=== PATIENT | female | born 1945 | race Caucasian/White ===

== ENCOUNTER → 2017-03-29 | Outpatient (CLI) | payer MEDICARE, BC ==
--- NOTE | 2017-03-29 14:20 | BD ---
EXAMINATION TYPE: MG DEXA axial skeleton. DATE OF EXAM: 03/29/2017 8:30 AM COMPARISON: 2014 CLINICAL HISTORY: osteoporosis Height: 5' Weight: 122 FRAX RISK QUESTIONS: Alcohol (3 or more units per day): no Family History (Parent hip fracture): no Glucocorticoids (More than 3mos): no (Ex: prednisone, prednisolone, methylprednisolone, dexamethasone, and hydrocortisone). History of Fracture in Adulthood: no Secondary Osteoporosis: 1. Type 1 Diabetes: no 2. Hyperthyroidism: no 3. Menopause before 45: yes 4. Malnutrition: no 5. Chronic liver disease: no Rheumatoid Arthritis: no Current Tobacco Use: no RISK FACTORS HISTORY OF: Family History of Osteoporosis: Active: Diet low in dairy products/other sources of calcium: Postmenopausal woman: MEDICATIONS: Additional Medications: cholesterol, pain, xanax, beta di Additional History: EXAM MEASUREMENTS: Bone mineral densitometry was performed using the [employer]. Bone mineral density as measured about the Lumbar spine is: ----- L1-L4(G/cm2): 1.127 T Score Values are as follows: ----- L2: 1.1 ----- L3: 1.9 ----- L4: -1.6 ----- L1-L4: -0.4 Bone mineral density has: Increased 17.7since study of: 03/26/2015 Bone mineral density about the R hip (g/cm2): 0.627 Bone mineral density about the L hip (g/cm2): 0.638 T Score values are as follows: -----R Neck: -3.0 -----L Neck: -2.9 -----R Total: -2.6 -----L Total: -2.7 Bone mineral density has: Decreased -2.8since study of: 03/26/2015 IMPRESSION: Osteoporosis (T Score less than -2.5) as noted by T Score values at the: [facility] Hips There is increased fracture risk and therapy is usually indicated based on age. Re-Screen 1-2 years. Bone density is diminished 2.8% within the bilateral hips from 03/26/2015. Bone density has improved 1 7.7% within the lumbar spine from 2014 NOTE: T-SCORE=SD OF THE YOUNG ADULT MEAN.
--- NOTE | 2017-04-03 08:11 | MM ---
Reason for exam: screening (asymptomatic). Last mammogram was performed 1 year ago. History: Patient is postmenopausal and history of other cancer. Family history of breast cancer in maternal aunt at age 65. Physical Findings: A clinical breast exam by your physician is recommended on an annual basis and results should be correlated with mammographic findings. MG 3D Screening Mammo W/Cad Bilateral CC and MLO view(s) were taken. Prior study comparison: March 27, 2016, bilateral MG 3d screening mammo w/cad. March 26, 2015, bilateral MG screening mammo w CAD. March 25, 2014, right breast MG work up mamm w CAD RT. March 19, 2014, bilateral MG screening mammo w CAD. The breast tissue is heterogeneously dense. This may lower the sensitivity of mammography. No significant changes when compared with prior studies. ASSESSMENT: Benign, BI-RAD 2 RECOMMENDATION: Routine screening mammogram of both breasts in 1 year.
== END | disposition home or self-care (01) ==
LOC: RADMAMWWP 08:25
PROVIDERS: ATTEND Internal Medicine
DX: Z12.31 Encounter for screening mammogram for malignant neoplasm of breast (principal); M81.0 Age-related osteoporosis without current pathological fracture
CPT/HCPCS: 77080; 77063; G0202

== ENCOUNTER → 2017-05-01 | Outpatient (CLI) | payer MEDICARE, BC ==
--- NOTE | 2017-05-01 15:21 | US ---
EXAMINATION TYPE: US kidneys/renal and bladder DATE OF EXAM: 05/01/2017 COMPARISON: NONE CLINICAL HISTORY: 71-year-old female N18.2 stage II chronic kidney disease. TECHNIQUE: Multiple sonographic images of the kidneys and bladder. FINDINGS: Right Kidney: 9.5 x 3.7 x 3.9 cm with mild hydronephrosis. Left Kidney: 9.2 x 4.7 x 4.1 cm without hydronephrosis. Bladder: There is a 1.7 x 1.6 cm mural based echogenic lesion along the mid posterior bladder. Both u reteral jets are seen. Post Void Residual Volume: 67.3 mL, elevated. IMPRESSION: 1. Possible 1.7 cm inferior and posterior bladder calculus. A urothelial mass is difficult to exclude . Correlate with urinalysis, urine cytology, and direct visualization is indicated. 2. Mild right-sided hydronephrosis. 3. Elevated post void bladder residual suggests urinary retention.
== END | disposition home or self-care (01) ==
LOC: RADUSWWP 14:41
PROVIDERS: ATTEND Internal Medicine
DX: N13.30 Unspecified hydronephrosis (principal); N32.89 Other specified disorders of bladder
CPT/HCPCS: 76770

== ENCOUNTER → 2018-04-05 | Outpatient (CLI) | payer MEDICARE, BC ==
--- NOTE | 2018-04-06 07:45 | US ---
EXAMINATION TYPE: US carotid duplex BILAT DATE OF EXAM: 04/05/2018 COMPARISON: NONE CLINICAL HISTORY: I65.23 occlusion and stenosis of bilateral carotid arteries. EXAM MEASUREMENTS: RIGHT: Peak Systolic Velocity (PSV) cm/sec ----- Right CCA: 63.6 ----- Right ICA: 87.8 ----- Right ECA: 102.1 ICA/CCA ratio: 1.4 RIGHT: End Diastole cm/sec ----- Right CCA: 18.6 ----- Right ICA: 31.8 ----- Right ECA: 16.7 LEFT: Peak Systolic Velocity (PSV) cm/sec ----- Left CCA: 77.9 ----- Left ICA: 129.1 ----- Left ECA: 79.0 ICA/CCA ratio: 1.7 LEFT: End Diastole cm/sec ----- Left CCA: 26.3 ----- Left ICA: 40.2 ----- Left ECA: 12.0 VERTEBRALS (direction of flow): Right Vertebral: Antegrade Left Vertebral: Antegrade Rhythm: Normal Mild plaque bilateral bifurcations. No evidence of significant stenosis. Tortuous left ICA. Hypoechoi c area right neck anterior to ECA = 0.9 x 0.6 x 0.6cm IMPRESSION: Mild plaque bilateral bifurcations. No evidence of significant stenosis. Tortuous left IC A. Hypoechoic area right neck anterior to ECA = 0.9 x 0.6 x 0.6cm Criteria for Assigning % of Stenosis / Diameter reduction (Estimation based on the indirect measurements of the internal carotid artery velocities (ICA PSV). 1. Normal (no stenosis)=ICA PSV < 125 cm/s: ratio < 2.0: ICA EDV<40 cm/s. 2. Less than 50% stenosis=ICA PSV < 125 cm/s: ratio < 2.0: ICA EDV<40 cm/s. 3. 50 to 69% stenosis=ICA PSV of 125 to 230 cm/s: ration 2.0 ? 4.0: ICA EDV 40-100 cm/s. 4. Greater than 70% stenosis to near occlusion= ICA PSV > 230 cm/s: ratio > 4.0: ICA EDV > 100 cm/s. 5. Near occlusion= ICA PSV velocities may be low or undetectable: variable ratio and ICA EDV. 6. Total occlusion=unable to detect flow.
--- NOTE | 2018-04-06 11:26 | ECHOF ---
Referral Reason:I34.0 Nonrheumatic mitral Reguritation MEASUREMENTS -------- HEIGHT: 154.9 cm WEIGHT: 55.3 kg BP: 183/73 RVIDd: 2.5 cm (< 3.3) IVSd: 1.1 cm (0.6 - 1.1) LVIDd: 4.1 cm (3.9 - 5.3) LVPWd: 1.0 cm (0.6 - 1.1) IVSs: 1.4 cm LVIDs: 2.5 cm LVPWs: 1.2 cm LA Diam: 3.4 cm (2.7 - 3.8) LAESV Index (A-L): 29.84 ml/m Ao Diam: 2.6 cm (2.0 - 3.7) AV Cusp: 1.5 cm (1.5 - 2.6) LA Diam: 3.6 cm (2.7 - 3.8) MV EXCURSION: 13.970 mm (> 18.000) MV EF SLOPE: 115 mm/s (70 - 150) EPSS: 0.7 cm MV E [place]: 1.21 m/s MV DecT: 208 ms MV A [place]: 0.89 m/s MV E/A Ratio: 1.36 RAP: 5.00 mmHg RVSP: 39.01 mmHg FINDINGS -------- Sinus rhythm. This was a technically good study. The left ventricular size is normal. Left ventricular wall thickness is normal. Overall left vent ricular systolic function is normal with, an EF between 55 - 60 %. The right ventricle is normal in size and function. LA is midly dilated 29-33ml/m2. RA appears enlarged. Aortic valve is trileaflet and is mildly thickened. There is no evidence of aortic regurgitation. There is no evidence of aortic stenosis. The mitral valve leaflets are mildly thickened. [id number]-[id number] mitral regurgitation is present. Mild tricuspid regurgitation present. There is mild pulmonary hypertension. The right ventricular systolic pressure, as measured by Doppler, is 39.01mmHg. Trace/mild (physiologic) pulmonic regurgitation. The aortic root size is normal. Normal inferior vena cava with normal inspiratory collapse consistent with estimated right atrial pre ssure of 5 mmHg. There is no pericardial effusion. CONCLUSIONS -------- 1. Sinus rhythm. 2. This was a technically good study. 3. The left ventricular size is normal. 4. Left ventricular wall thickness is normal. 5. Overall left ventricular systolic function is normal with, an EF between 55 - 60 %. 6. LA is midly dilated 29-33ml/m2. 7. RA appears enlarged. 8. Aortic valve is trileaflet and is mildly thickened. 9. The mitral valve leaflets are mildly thickened. 10. Beix-dx-fbtetdpp mitral regurgitation is present. 11. Mild tricuspid regurgitation present. 12. There is mild pulmonary hypertension. 13. The right ventricular systolic pressure, as measured by Doppler, is 39.01mmHg. 14. Trace/mild (physiologic) pulmonic regurgitation. 15. The aortic root size is normal. 16. There is no pericardial effusion. PACK OPERATOR: Topher Sears RDCS
== END ==
LOC: RADECHMAIN 15:07
PROVIDERS: ATTEND Internal Medicine
DX: I77.1 Stricture of artery (principal); I65.23 Occlusion and stenosis of bilateral carotid arteries
CPT/HCPCS: 93306; 93880

== ENCOUNTER → 2018-04-11 | Outpatient (CLI) | payer MEDICARE, BC ==
--- NOTE | 2018-04-15 12:39 | MM ---
Reason for exam: screening (asymptomatic). Last mammogram was performed 1 year ago. History: Patient is postmenopausal and history of other cancer. Family history of breast cancer in maternal aunt at age 65. Physical Findings: A clinical breast exam by your physician is recommended on an annual basis and results should be correlated with mammographic findings. MG 3D Screening Mammo W/Cad Bilateral CC and MLO view(s) were taken. Prior study comparison: March 29, 2017, bilateral MG 3d screening mammo w/cad. March 27, 2016, bilateral MG 3d screening mammo w/cad. The breast tissue is heterogeneously dense. This may lower the sensitivity of mammography. No significant changes when compared with prior studies. ASSESSMENT: Benign, BI-RAD 2 RECOMMENDATION: Routine screening mammogram of both breasts in 1 year.
== END | disposition home or self-care (01) ==
LOC: RADMAMWWP 11:16
PROVIDERS: ATTEND Internal Medicine
DX: Z12.31 Encounter for screening mammogram for malignant neoplasm of breast (principal)
CPT/HCPCS: 77063; 77067

== ENCOUNTER → 2018-04-17 | Outpatient (CLI) | payer MEDICARE, BC ==
--- NOTE | 2018-04-18 07:07 | US ---
EXAMINATION TYPE: US thyroid st tissue head/neck DATE OF EXAM: 04/17/2018 COMPARISON: April 05, [address] April 04, 2016. CLINICAL HISTORY: Q18.8 MEDIAL CYST OF NECK. Rt anterior to eca solid non vascular mass 0.9 x 0.6 x 0.8 cm GLAND SIZE: Right Lobe: 3.7 x 1.2 x 1.2 cm Overall Parenchyma: homogenous Left Lobe: 2.6 x0.9 x 0.8 cm Overall Parenchyma: homogeneous Isthmus Thickness: 0.3 cm NODULES RIGHT: # of nodules measured on right: 1 1. 0.3 X 0.2 x 0.3 cm echogenic mixed nodule at the lower pole with well-defined margins; . This n odule is round and shows no intranodular vascularity. Prior size: no prior LEFT: # of nodules measured on left: 0 ISTHMUS: # of nodules measured in the isthmus: 0 Bilateral neck scanned, no evidence of lymphadenopathy. There is overall small size thyroid gland identified with asymmetric diminished size to left thyroid lobe again seen. Small nodule right thyroid is marked by technologist. Previously visualized nonspeci fic subcentimeter nodule right external carotid artery is not clearly identified on current study. IMPRESSION: Small size thyroid without worrisome greater than 1 cm solid or cystic nodule.
== END | disposition home or self-care (01) ==
LOC: RADUSWWP 16:02
PROVIDERS: ATTEND Internal Medicine
DX: E04.1 Nontoxic single thyroid nodule (principal)
CPT/HCPCS: 76536

== ENCOUNTER 2019-03-02 15:17 | Emergency (ER) | payer MEDICARE, BC ==
[2019-03-02 15:21] VITALS: TEMP 98.3
--- NOTE | 2019-03-02 15:44 | ED ---
General Adult HPI - General Chief complaint: Urogenital Stated complaint: Poss UTI Time Seen by Provider: 03/02/19 15:23 Source: patient, RN notes reviewed, old records reviewed Mode of arrival: ambulatory Limitations: no limitations - History of Present Illness Initial comments: 73-year-old female patient past medical history of fibromyalgia, GERD, hypert ension, hyperlipidemia presents ED with 1 day of urinary frequency and dysuria. Patient also reports some mild suprapubic discomfort. Patient denies any other complaints. Patient denies any fevers chills, nausea vomiting diarrhea. Patient denies any chest pain shortness of breath. Systemic: Pt denies fatigue, myalgia, fever/chills, rash. Pt denies weakness, night sweats, weight loss. Neuro: Pt denies headache, visual disturbances, syncope or pre-syncope. HEENT: Pt denies ocular discharge or irritation, otalgia, rhinorrhea, pharyngitis or notable lymphadenopathy. Cardiopulmonary: Pt denies chest pain, SOB, heart palpitations, dyspnea on exertion. Abdominal/GI: Pt denies abdominal pain, n/v/d. : Denies new onset urinary or bowel incontinence. MSK: Pt denies myalgia, loss of strength or function in extremities. Neuro: Pt denies new onset weakness, paresthesias. - Related Data Home Medications Medication Instructions Recorded Confirmed ALPRAZolam [Xanax] 0.25 mg PO BID 03/02/16 03/06/16 Acetaminophen Tab [Tylenol Tab] 1,000 mg PO Q6HR PRN 03/02/16 03/06/16 Atorvastatin [Lipitor] 10 mg PO HS 03/02/16 03/06/16 Calcium Carb-Vit D 500Mg-200Un 1 each PO QAM 03/02/16 03/06/16 [Oscal 500+D] Nadolol [Corgard] 20 mg PO DAILY 03/02/16 03/06/16 Naproxen [Naprosyn] 375 mg PO Q12HR 03/02/16 03/06/16 Orphenadrine [Norflex] 100 mg PO Q12H 03/02/16 03/06/16 Ranitidine HCl 150 mg PO QAM 03/02/16 03/06/16 Hydrochlorothiazide 12.5 mg PO DAILY PRN 03/06/16 03/06/16 Previous Rx's Medication Instructions Recorded Nitrofurantoin Monohyd/M-Cryst 100 mg PO Q12HR #14 cap 03/02/19 [Macrobid] Allergies Allergy/AdvReac Type Severity Reaction Status Date / Time hydrocodone bitartrate Allergy "heart Verified 03/02/19 15:20 [From Vicodin] races" latex Allergy Swelling Verified 03/02/19 15:20 prochlorperazine Allergy Pain Verified 03/02/19 15:20 [From Compazine] prochlorperazine edisylate Allergy Pain Verified 03/02/19 15:20 [From Compazine] prochlorperazine maleate Allergy Pain Verified 03/02/19 15:20 [From Compazine] adhesive tape AdvReac Rash/Hives Verified 03/02/19 15:20 Review of Systems ROS Statement: Those systems with pertinent positive or pertinent negative responses have been documented in the HPI. ROS Other: All systems not noted in ROS Statement are negative. Past Medical History Past Medical History: Fibromyalgia, GERD/Reflux, Hyperlipidemia, Hypertension History of Any Multi-Drug Resistant Organisms: None Reported Past Surgical History: Bladder Surgery, Hysterectomy Additional Past Surgical History / Comment(s): 1998 partial hysterectomy & bladder suspension, kidney stone removed Past Anesthesia/Blood Transfusion Reactions: No Reported Reaction Past Psychological History: Anxiety Smoking Status: Former smoker Past Alcohol Use History: Rare Past Drug Use History: None Reported - Past Family History Mother Family Medical History: Cancer, Hyperlipidemia Additional Family Medical History / Comment(s): CA: lung Father Family Medical History: Congestive Heart Failure (CHF), Diabetes Mellitus General Exam - General Exam Comments Initial Comments: Constitutional: NAD, AOX3, Pt has pleasant affect. HEENT: NC/AT, trachea midline, neck supple, no lymphadenopathy. Posterior phary nx non erythematous, without exudates. External ears appear normal, without discharge. Mucous membranes moist. Eyes PERRLA, EOM intact. There is no scleral icterus. No pallor noted. Cardiopulmonary: RRR, no murmurs, rubs or gallops, no JVD noted. Lungs CTAB in anterior and posterior silverio. No peripheral edema. Abdominal exam: Abdomen soft and non-distended. Suprapubic region mildly tender to palpation. No other areas of abdominal tenderness. Bowel sounds active in LLQ. No hepatosplenomegaly. No ecchymosis Neuro: CN II-XII grossly intact. No nuchal rigidity. MSK: No posterior calf tenderness bilaterally, homans sign negative bilaterally. Posterior tibialis and radial pulse +2 bilaterally. Sensation intact in upper and lower extremities. Full active ROM in upper and lower extremities, 5/5 stregnth. Limitations: no limitations Course Vital Signs 03/02/19 03/02/19 03/02/19 15:18 16:44 17:00 Temperature 98.3 F Pulse Rate 73 Respiratory 18 Rate Blood Pressure 192/89 183/93 191/95 O2 Sat by Pulse 99 Oximetry Medical Decision Making - Medical Decision Making 73-year-old female patient past medical history of fibromyalgia, GERD, hypertension, hyperlipidemia presents ED with 1 day of urinary frequency and dysuria. Patient also reports some mild suprapubic discomfort. Patient denies any other complaints. Patient denies any fevers chills, nausea vomiting diarrhea. Patient denies any chest pain shortness of breath. Physical exam displayed: Abdomen soft and non-distended. Suprapubic region mildly tender to palpation. No other areas of abdominal tenderness. Bowel sounds active in LLQ. No hepatosplenomegaly. No ecchymosis. Laboratory investigations revealed: Non- impressive CBC, CMP. UA displayed urinary tract infection. Patient administered 1 g Rocephin ED. Patient discharged with Macrobid. Patient 5 blo od pressure mildly elevated in ED. Patient administered 1 dose of labetalol. Patient discharged. Patient will monitor blood pressure at home. Patient to follow up with primary care provider in 1-2 days. Patient will return to ER if condition worsens in anyway. Case discussed with Dr. Lane. - Lab Data Result diagrams: 03/02/19 16:10 03/02/19 16:10 Lab Results 03/02/19 03/02/19 03/02/19 Range/Units 15:53 16:10 16:10 WBC 9.8 (3.8-10.6) k/uL RBC 4.58 (3.80-5.40) m/uL Hgb 13.6 (11.4-16.0) gm/dL Hct 41.8 (34.0-46.0) % MCV 91.3 (80.0-100.0) fL MCH 29.8 (25.0-35.0) pg MCHC 32.6 (31.0-37.0) g/dL RDW 12.3 (11.5-15.5) % Plt Count 194 (150-450) k/uL Neutrophils % 75 % Lymphocytes % 15 % Monocytes % 7 % Eosinophils % 0 % Basophils % 0 % Neutrophils # 7.4 (1.3-7.7) k/uL Lymphocytes # 1.5 (1.0-4.8) k/uL Monocytes # 0.7 (0-1.0) k/uL Eosinophils # 0.0 (0-0.7) k/uL Basophils # 0.0 (0-0.2) k/uL Sodium 138 (137-145) mmol/L Potassium 4.4 (3.5-5.1) mmol/L Chloride 103 (98-107) mmol/L Carbon Dioxide 25 (22-30) mmol/L Anion Gap 10 mmol/L BUN 22 H (7-17) mg/dL Creatinine 0.89 (0.52-1.04) mg/dL Est GFR (CKD-EPI)AfAm 75 (>60 ml/min/1.73 sqM) Est GFR (CKD-EPI)NonAf 65 (>60 ml/min/1.73 sqM) Glucose 102 H (74-99) mg/dL Calcium 10.0 (8.4-10.2) mg/dL Magnesium 2.0 (1.6-2.3) mg/dL Total Bilirubin 0.8 (0.2-1.3) mg/dL AST 41 H (14-36) U/L ALT 40 (9-52) U/L Alkaline Phosphatase 121 (38-126) U/L Total Protein 8.1 (6.3-8.2) g/dL Albumin 5.1 H (3.5-5.0) g/dL Urine Color Light Yellow Urine Appearance Cloudy H (Clear) Urine pH 6.5 (5.0-8.0) Ur Specific [place] 1.012 (1.001-1.035) Urine Protein Trace H (Negative) Urine Glucose (UA) Negative (Negative) Urine Ketones Negative (Negative) Urine Blood Moderate H (Negative) Urine Nitrite Positive H (Negative) Urine Bilirubin Negative (Negative) Urine Urobilinogen <2.0 (<2.0) mg/dL Ur Leukocyte Esterase Large H (Negative) Urine RBC 30 H (0-5) /hpf Urine WBC 161 H (0-5) /hpf Urine Mucus Rare H (None) /hpf Disposition Clinical Impression: Urinary tract infection Disposition: HOME SELF-CARE Condition: Stable Instructions (If sedation given, give patient instructions): Urinary Tract Infection in Women (ED) Additional Instructions: Patient to adhere to previously discussed treatment plan and will take medication(s) as directed. Patient to follow up with PCP in 1-2 days. Patient to return to ED if symptoms do not improve. Take medication as directed. Follow up with primary care provider in 1-2 days. Prescriptions: Nitrofurantoin Monohyd/M-Cryst [Macrobid] 100 mg PO Q12HR #14 cap Is patient prescribed a controlled substance at d/c from ED?: No Referrals: Yovana Davidson MD [Primary Care Provider] - 1-2 days
[2019-03-02 16:06] LABS: Appearance,Urine Cloudy (Clear); Bilirubin,Urine Negative (Negative); Blood,Urine Moderate (Negative); Color,Urine Light Yellow; Glucose,Urine (UA) Negative (Negative); Ketones,Urine Negative (Negative); Leukocyte Esterase,Urine Large (Negative); Mucus,Urine Rare /hpf; Nitrite,Urine Positive (Negative); PH, Urine 6.5 (5.0-8.0); Protein,Urine Trace (Negative); RBC,Urine 30 /hpf (0-5); Specific Gravity,Urine 1.012 (1.001-1.035); Urobilinogen,Urine <2.0 mg/dL (<2.0)
[2019-03-02 16:19] LABS: Basophils % (A) 0 %; Eosinophils % (A) 0 %; HCT 41.8 % (34.0-46.0); HGB 13.6 gm/dL (11.4-16.0); Lymphocytes # (A) 1.5 k/uL (1.0-4.8); Lymphocytes % (A) 15 %; MCH 29.8 pg (25.0-35.0); MCHC 32.6 g/dL (31.0-37.0); MCV 91.3 fL (80.0-100.0); Mean Platelet Volume 8.9; Monocytes # (A) 0.7 k/uL (0-1.0); Monocytes % (A) 7 %; Neutrophils # (A) 7.4 k/uL (1.3-7.7); Neutrophils % (A) 75 %; Platelet Count 194 k/uL (150-450); RBC 4.58 m/uL (3.80-5.40); RDW 12.3 % (11.5-15.5); WBC 9.8 k/uL (3.8-10.6)
--- NOTE | 2019-03-02 16:43 | XR ---
EXAMINATION TYPE: XR KUB DATE OF EXAM: 03/02/2019 COMPARISON: NONE HISTORY: Renal stones TECHNIQUE: 2 views FINDINGS: There is a mild thoracolumbar dextroscoliosis. There is no sign of intestinal obstruction o r pneumoperitoneum. Fecal pattern is normal. There are no pathologic calcifications over the kidneys. Lung bases are clear. There is no evidence of a mass. IMPRESSION: Nonacute abdomen.
[2019-03-02 16:45] LABS: Albumin 5.1 g/dL (3.5-5.0); Total Bilirubin 0.8 mg/dL (0.2-1.3); Total Protein 8.1 g/dL (6.3-8.2)
[2019-03-02 17:03] LABS: Potassium 4.4 mmol/L (3.5-5.1)
[2019-03-02] MEDS ORDERED: LABETALOL SYRINGE 5 MG/ML IVP STA (17:18)
[2019-03-02 18:04] VITALS: BP 173/89; PULSE 89; RESP 16
== END 2019-03-02 18:15 | disposition home or self-care (01) ==
LOC: EC 15:17
DX: N39.0 Urinary tract infection, site not specified (principal); I10 Essential (primary) hypertension; K21.9 Gastro-esophageal reflux disease without esophagitis; M79.7 Fibromyalgia; E78.5 Hyperlipidemia, unspecified; F41.9 Anxiety disorder, unspecified; Z87.891 Personal history of nicotine dependence; Z88.5 Allergy status to narcotic agent; Z88.8 Allergy status to other drugs, medicaments and biological substances; Z91.040 Latex allergy status; Z91.048 Other nonmedicinal substance allergy status; Z79.1 Long term (current) use of non-steroidal anti-inflammatories (NSAID); Z79.899 Other long term (current) drug therapy; Z98.890 Other specified postprocedural states
CPT/HCPCS: 36415; 80053; 83735; 85025; 81001; 87086; 74018; 99284; 96365; 96375; J0696; 87077; 87186

== ENCOUNTER 2019-03-29 10:42 | Emergency (ER) | payer MEDICARE, BC ==
[2019-03-29 10:51] VITALS: RESP 16; TEMP 97.9
--- NOTE | 2019-03-29 11:02 | ED ---
Extremity Problem HPI - General Chief complaint: Extremity Problem,Nontraumatic Stated complaint: POST OP SWELLING RT ARM Time Seen by Provider: 03/29/19 11:01 Source: patient Mode of arrival: ambulatory Limitations: no limitations - History of Present Illness Initial comments: Dayaanra is a pleasant 73-year-old female presents to the emergency department t sissy for evaluation of right hand swelling. Patient reports that on afternoon she had a lesion removed from her right forearm by Dr. Rivera dermatology. Patient tolerated that procedure well had a dressing placed and was advised to remove the dressing in 48 hours which would be around 2 PM today. Patient reports that yesterday she noted that her hands seemed to be swelling despite her attempts to keep elevated, she began applying ice to the hand but when she woke this morning noted that it was significantly more swollen so she came to the ER for evaluation. She has not attempted to remove the dressing as of yet. MD Complaint: extremity pain - Related Data Home Medications Medication Instructions Recorded Confirmed ALPRAZolam [Xanax] 0.25 mg PO BID 03/02/16 03/06/16 Acetaminophen Tab [Tylenol Tab] 1,000 mg PO Q6HR PRN 03/02/16 03/06/16 Atorvastatin [Lipitor] 10 mg PO HS 03/02/16 03/06/16 Calcium Carb-Vit D 500Mg-200Un 1 each PO QAM 03/02/16 03/06/16 [Oscal 500+D] Nadolol [Corgard] 20 mg PO DAILY 03/02/16 03/06/16 Naproxen [Naprosyn] 375 mg PO Q12HR 03/02/16 03/06/16 Orphenadrine [Norflex] 100 mg PO Q12H 03/02/16 03/06/16 Ranitidine HCl 150 mg PO QAM 03/02/16 03/06/16 Hydrochlorothiazide 12.5 mg PO DAILY PRN 03/06/16 03/06/16 Previous Rx's Medication Instructions Recorded Nitrofurantoin Monohyd/M-Cryst 100 mg PO Q12HR #14 cap 03/02/19 [Macrobid] Allergies Allergy/AdvReac Type Severity Reaction Status Date / Time hydrocodone bitartrate Allergy "heart Verified 03/29/19 10:51 [From Vicodin] races" latex Allergy Swelling Verified 03/29/19 10:51 prochlorperazine Allergy Pain Verified 03/29/19 10:51 [From Compazine] prochlorperazine edisylate Allergy Pain Verified 03/29/19 10:51 [From Compazine] prochlorperazine maleate Allergy Pain Verified 03/29/19 10:51 [From Compazine] adhesive tape AdvReac Rash/Hives Verified 03/29/19 10:51 Review of Systems ROS Statement: Those systems with pertinent positive or pertinent negative responses have been documented in the HPI. ROS Other: All systems not noted in ROS Statement are negative. Past Medical History Past Medical History: Fibromyalgia, GERD/Reflux, Hyperlipidemia, Hypertension History of Any Multi-Drug Resistant Organisms: None Reported Past Surgical History: Bladder Surgery, Hysterectomy Additional Past Surgical History / Comment(s): 1998 partial hysterectomy & bladder suspension, kidney stone removed Past Anesthesia/Blood Transfusion Reactions: No Reported Reaction Past Psychological History: Anxiety Smoking Status: Former smoker Past Alcohol Use History: Rare Past Drug Use History: None Reported - Past Family History Mother Family Medical History: Cancer, Hyperlipidemia Additional Family Medical History / Comment(s): CA: lung Father Family Medical History: Congestive Heart Failure (CHF), Diabetes Mellitus General Exam - General Exam Comments Initial Comments: Physical Exam GENERAL: Patient is well-developed and well-nourished. Patient is nontoxic and well-hydrated and is in no distress. HENT: Normocephalic, Atraumatic. EYES: PERRL, EOMI PULMONARY: Unlabored respirations CARDIOVASCULAR: RRR ABDOMEN: Non-distended SKIN: Well healing surgical incision on right forearm, with no erythema or purulence foy on the right forearm from dressing causing compression : Deferred NEUROLOGIC: Patient is alert and oriented x3. Moving all extremities spontaneously MUSCULOSKELETAL: Normal extremities with adequate strength and full range of motion. No lower extremity swelling or edema. No calf tenderness. PSYCHIATRIC: Normal psychiatric evaluation Limitations: no limitations Course Vital Signs 03/29/19 10:48 Temperature 97.9 F Pulse Rate 55 L Respiratory 16 Rate Blood Pressure 177/62 O2 Sat by Pulse 100 Oximetry Medical Decision Making - Medical Decision Making The patient was seen and evaluated history is obtained from the patient Physical exam does reveal an edematous right hand with a dressing in place in the right forearm, dressing is very tight there is concerned that it's causing some vascular congestion Dressing was removed, wound was evaluated and is healing very well with no signs of infection or inflammation A very loose dressing was placed, with a the 30 minutes of the patient was here in the emergency department edema in the hand began improving, I do feel that all of her edema is due to vascular constriction due to the very tight dressing. Appropriate dressing was discussed with patient and her , patient was encouraged to continue elevating the hand, ice as needed if she once it though this is not an inflammatory process therefore ice is not necessary it is uncomfortable for her. All questions pertaining care were answered return parameters discussed patient discharged home in stable condition Disposition Clinical Impression: Encounter for postoperative wound check Disposition: HOME SELF-CARE Condition: Stable Instructions (If sedation given, give patient instructions): Care For Your Stitches (DC) Is patient prescribed a controlled substance at d/c from ED?: No Referrals: Yovana Davidson MD [Primary Care Provider] - 1-2 days
[2019-03-29 11:50] VITALS: BP 162/72; PULSE 56
== END 2019-03-29 11:45 | disposition home or self-care (01) ==
LOC: EC 10:42
DX: Z48.01 Encounter for change or removal of surgical wound dressing (principal); E78.5 Hyperlipidemia, unspecified; I10 Essential (primary) hypertension; K21.9 Gastro-esophageal reflux disease without esophagitis; F41.9 Anxiety disorder, unspecified; Z87.891 Personal history of nicotine dependence; Z88.5 Allergy status to narcotic agent; Z88.8 Allergy status to other drugs, medicaments and biological substances; Z91.040 Latex allergy status; Z91.048 Other nonmedicinal substance allergy status; Z79.1 Long term (current) use of non-steroidal anti-inflammatories (NSAID); Z79.899 Other long term (current) drug therapy
CPT/HCPCS: 99283

== ENCOUNTER → 2019-04-22 | Outpatient (CLI) | payer MEDICARE, BC ==
--- NOTE | 2019-04-22 11:56 | MM ---
Reason for exam: screening (asymptomatic). Last mammogram was performed 1 year ago. History: Patient is postmenopausal and history of other cancer. Family history of breast cancer in maternal aunt at age 65. Physical Findings: A clinical breast exam by your physician is recommended on an annual basis and results should be correlated with mammographic findings. MG 3D Screening Mammo W/Cad Bilateral CC and MLO view(s) were taken. Prior study comparison: April 11, 2018, bilateral MG 3d screening mammo w/cad. March 29, 2017, bilateral MG 3d screening mammo w/cad. The breast tissue is heterogeneously dense. This may lower the sensitivity of mammography. There are benign appearing round calcifications bilaterally. There is no discrete abnormality. ASSESSMENT: Benign, BI-RAD 2 RECOMMENDATION: Routine screening mammogram of both breasts in 1 year.
== END | disposition home or self-care (01) ==
LOC: RADMAMWWP 09:24
PROVIDERS: ATTEND Internal Medicine
DX: Z12.31 Encounter for screening mammogram for malignant neoplasm of breast (principal)
CPT/HCPCS: 77063; 77067

== ENCOUNTER 2019-06-02 08:48 | Observation (INO) | payer MEDICARE, BC ==
[2019-06-02] MEDS ORDERED: ASPIRIN 81 MG PO STA (09:09)
--- NOTE | 2019-06-02 09:43 | ED ---
Chest Pain HPI - General Chief Complaint: Chest Pain Stated Complaint: chest pain Time Seen by Provider: 06/02/19 09:09 Source: patient, RN notes reviewed Mode of arrival: ambulatory Limitations: no limitations - History of Present Illness Initial Comments: This a 73-year-old female presents emergency Department with chief complaint of chest pain. Patient states it started about 6:45 AM. Patient states that the pain is in her central chest region. It is worse with deep inspiration. Patient does admit that she has had a cough for over a week which is been persistent. Patient does have a history of hyperlipidemia, hypertension, former smoker. Patient denies any known lung disease. Patient denies fever or chills no abdominal pain no diaphoresis no nausea vomiting. - Related Data Home Medications Medication Instructions Recorded Confirmed ALPRAZolam [Xanax] 0.25 mg PO BID 03/02/16 06/02/19 Acetaminophen Tab [Tylenol Tab] 1,000 mg PO Q6HR PRN 03/02/16 06/02/19 Atorvastatin [Lipitor] 10 mg PO HS 03/02/16 06/02/19 Calcium Carb-Vit D 500Mg-200Un 1 tab PO QAM 03/02/16 06/02/19 [Oscal 500+D] Nadolol [Corgard] 20 mg PO DAILY 03/02/16 06/02/19 Orphenadrine [Norflex] 100 mg PO Q12H 03/02/16 06/02/19 Ranitidine HCl 150 mg PO BID 03/02/16 06/02/19 Hydrochlorothiazide 12.5 mg PO DAILY PRN 03/06/16 06/02/19 Allergies Allergy/AdvReac Type Severity Reaction Status Date / Time hydrocodone bitartrate Allergy "heart Verified 06/02/19 09:22 [From Vicodin] races" latex Allergy Swelling Verified 06/02/19 09:22 prochlorperazine Allergy Pain Verified 06/02/19 09:22 [From Compazine] prochlorperazine edisylate Allergy Pain Verified 06/02/19 09:22 [From Compazine] prochlorperazine maleate Allergy Pain Verified 06/02/19 09:22 [From Compazine] adhesive tape AdvReac Rash/Hives Verified 06/02/19 09:22 Review of Systems ROS Statement: Those systems with pertinent positive or pertinent negative responses have been documented in the HPI. ROS Other: All systems not noted in ROS Statement are negative. EKG Findings - EKG Comments: EKG Findings:: EKG performed at 9:38 sinus bradycardia rate of 50 LA 152 QRS 86 QT/QTc 448/408 Past Medical History Past Medical History: Fibromyalgia, GERD/Reflux, Hyperlipidemia, Hypertension History of Any Multi-Drug Resistant Organisms: None Reported Past Surgical History: Bladder Surgery, Hysterectomy Additional Past Surgical History / Comment(s): 1998 partial hysterectomy & bladder suspension, kidney stone removed Past Anesthesia/Blood Transfusion Reactions: No Reported Reaction Past Psychological History: Anxiety Smoking Status: Former smoker Past Alcohol Use History: Rare Past Drug Use History: None Reported - Past Family History Mother Family Medical History: Cancer, Hyperlipidemia Additional Family Medical History / Comment(s): CA: lung Father Family Medical History: Congestive Heart Failure (CHF), Diabetes Mellitus General Exam Limitations: no limitations General appearance: alert, in no apparent distress Head exam: Present: atraumatic, normocephalic, normal inspection Eye exam: Present: normal appearance, PERRL, EOMI. Absent: scleral icterus, conjunctival injection, periorbital swelling ENT exam: Present: normal exam, normal oropharynx, mucous membranes moist, TM's normal bilaterally Neck exam: Present: normal inspection, full ROM. Absent: tenderness, meningismus, lymphadenopathy Respiratory exam: Present: normal lung sounds bilaterally, chest wall tenderness (Anterior chest wall, parasternal). Absent: respiratory distress, wheezes, rales, rhonchi, stridor Cardiovascular Exam: Present: normal rhythm, bradycardia, normal heart sounds. Absent: systolic murmur, diastolic murmur, rubs, gallop, clicks GI/Abdominal exam: Present: soft, normal bowel sounds. Absent: distended, tenderness, guarding, rebound, rigid Course Vital Signs 06/02/19 08:58 Temperature 98.1 F Pulse Rate 54 L Respiratory 18 Rate Blood Pressure 146/75 O2 Sat by Pulse 100 Oximetry Chest Pain [facility] 73-year-old female presented for chest discomfort. Patient did have labs, EKG and chest x-ray. Patient symptoms are atypical with typical features. Patient will be admitted for a cardiology evaluation echo. Patient was placed on heparin Disposition Clinical Impression: Chest pain Disposition: ADMITTED IP TO THIS HOSP Condition: Stable Referrals: Yovana Davidson MD [Primary Care Provider] - 1-2 days
[2019-06-02 10:36] LABS: Basophils # (A) 0.1 k/uL (0-0.2); Basophils % (A) 1 %; Eosinophils % (A) 1 %; HCT 41.2 % (34.0-46.0); HGB 13.1 gm/dL (11.4-16.0); Lymphocytes # (A) 1.6 k/uL (1.0-4.8); Lymphocytes % (A) 38 %; MCH 30.4 pg (25.0-35.0); MCHC 31.8 g/dL (31.0-37.0); MCV 95.6 fL (80.0-100.0); Mean Platelet Volume 9.3; Monocytes # (A) 0.3 k/uL (0-1.0); Monocytes % (A) 6 %; Neutrophils # (A) 2.1 k/uL (1.3-7.7); Neutrophils % (A) 49 %; Platelet Count 184 k/uL (150-450); RBC 4.31 m/uL (3.80-5.40); RDW 13.3 % (11.5-15.5); WBC 4.2 k/uL (3.8-10.6)
[2019-06-02 10:49] LABS: Albumin 4.3 g/dL (3.5-5.0); Calcium 9.4 mg/dL (8.4-10.2); Magnesium 2.1 mg/dL (1.6-2.3); Potassium 4.2 mmol/L (3.5-5.1); Total Bilirubin 0.4 mg/dL (0.2-1.3)
--- NOTE | 2019-06-02 11:08 | XR ---
EXAMINATION TYPE: XR chest 2V DATE OF EXAM: 06/02/2019 COMPARISON: Prior chest x-ray 03/09/2010 HISTORY: Chest pain, cough TECHNIQUE: Frontal and lateral views of the chest are obtained. FINDINGS: There is no focal air space opacity, pleural effusion, or pneumothorax seen. The cardiac silhouette size is within normal limits. There are overlying cardiac leads. The aorta is dense. The osseous structures are intact. Degenerative disc changes are noted in the lumbar spine. IMPRESSION: No acute cardiopulmonary process.
[2019-06-02 11:15] LABS: Partial Thromboplastin Time 24.4 sec (22.0-30.0); Prothrombin Time 10.3 sec (9.0-12.0)
[2019-06-02] MEDS ORDERED: NITROGLYCERIN SL TABS 0.4 MG TAB SUBLINGUAL PRN (11:31)
[2019-06-02] MEDS ORDERED: HEPARIN SODIUM,PORCINE 5,000 UNIT/ML 1 ML VIAL IV ONE (11:31)
[2019-06-02] MEDS ORDERED: HEPARIN SOD,PORK IN 0.45% NACL 25,000 UNIT in 0.45% NACL 1 250ML.BAG IV SCH (11:45)
[2019-06-02] MEDS ORDERED: ACETAMINOPHEN TAB 500 MG TAB PO PRN (13:43)
--- NOTE | 2019-06-02 13:56 | P.HPIM ---
History of Present Illness H&P Date: 06/02/19 Chief Complaint: Chest pain, cough This is a 73-year-old pleasant female patient of Dr. Davidson history of hypertension hyperlipidemia ALLERGIES GERD fibromyalgia, admitted to the emergency room secondary to chest pain that occurred today, substernal, worse with deep inspiration and coughing spells, patient does not have any shortness of breath with exertion, patient doesn't have any edema. Patient had had a cough for approximately one month, intermittent purulent, no treatments prior to admission. Patient has no fever has been cold all the time without any shaking chills, no edema, patient comes from [place] and was seen by Dr. Davidson in February 2019 for routine check and was okay at that time. Patient has, members are sick, with bronchitis mainly. Denies any history of cardiac cath the past, no stress test. No history of diabetes mellitus no stroke no CVA no CHF, no asthma or COPD In the emergency room creatinine was 1.07, normal CBC, troponin off 0.012, li pase normal at 114, liver function tests normal chest x-ray shows no acute airspace disease, no effusion or pneumothorax, EKG shows bradycardia 50 heart rate, the ER physician has decided to get her admitted for observation, for troponin evaluation echocardiogram and cardiology consultation Review of Systems Constitutional: Reports as per HPI, Denies anorexia, Denies chills, Denies chronic headaches, Denies chronic pain, Denies daytime sleepiness, Denies f atigue, Denies fever, Denies lethargy, Denies malaise, Denies night sweats, Denies poor appetite, Denies sweats, Denies weakness, Denies weight gain, Denies weight loss Ears, nose, mouth and throat: Reports as per HPI, Denies ant. neck pain, Denies bleeding gums, Denies dental pain, Denies dysphagia, Denies epistaxis, Denies headache, Denies hoarseness, Denies mouth pain, Denies nasal congestion, Denies nasal discharge, Denies neck fullness/pressure, Denies neck lump, Denies nose pain, Denies odynophagia, Denies post-nasal drip, Denies sinus pain, Denies sinus pressure, Denies swelling in mouth, Denies swelling in throat, Denies sore throat, Denies vertigo, Denies voice changes Cardiovascular: Reports as per HPI, Denies chest pain, Denies claudication, Denies decreased exercise tolerance, Denies dyspnea on exertion, Denies edema, Denies high blood pressure, Denies irregular heart beat, Denies leg edema, Denies lightheadedness, Denies orthopnea, Denies palpitations, Denies paroxysmal nocturnal dyspnea, Denies phlebitis, Denies rapid heart beat, Denies shortness of breath, Denies syncope Respiratory: Reports as per HPI, Reports cough with sputum, Reports pain on inspiration, Reports pleurisy, Reports respiratory infections, Denies congestion, Denies cough, Denies dyspnea, Denies excessive sputum, Denies he moptysis, Denies home oxygen, Denies pain, Denies sleep apnea, Denies snoring, Denies wheezing Gastrointestinal: Reports as per HPI, Denies abdominal pain, Denies belching, De nies bloating, Denies BRBPR, Denies change in bowel habits, Denies coffee ground emesis, Denies constipation, Denies diarrhea, Denies dyspepsia, Denies early satiety, Denies excessive gas, Denies heartburn, Denies hematemesis, Denies hematochezia, Denies indigestion, Denies jaundice, Denies lactose intolerance, Denies loss of appetite, Denies melena, Denies nausea, Denies vomiting Genitourinary: Reports as per HPI Menstruation: Reports as per HPI, Denies amenorrhea, Denies amenorrhea on BC, Denies currently menstrual, Denies cycle < 21 days, Denies cycle > 35 days, Denies cycle variable, Denies menses 1-7 days, Denies menses 8 or > days, Denies menses variable, Denies period heavy, Denies period light, Denies period normal, Denies period spotting, Denies post hysterectomy, Denies postmenopausal, Denies premenarcheal Musculoskeletal: Reports as per HPI, Denies arm numbness/tingling, Denies atrophy, Denies fractures, Denies frequent falls, Denies gait dysfunction, Denies hot joints, Denies leg numbness/tingling, Denies limitation of motion, Denies loss of height, Denies low back pain, Denies morning stiffness, Denies muscle cramps, Denies muscle weakness, Denies myalgias, Denies neck pain, Denies neck stiffness, Denies prior amputations, Denies redness of joints, Denies shooting arm pain, Denies shooting leg pain Integumentary: Reports as per HPI Neurological: Reports as per HPI, Denies aphasia, Denies ataxia, Denies balance difficulties, Denies burning pain, Denies change in mentation, Denies change in smell/taste, Denies change in speech, Denies confusion, Denies convulsions, Denies double vision, Denies gait dysfunction, Denies head injury, Denies headaches, Denies hearing difficulties, Denies lack of coordination, Denies loss of vision, Denies memory loss, Denies migraines, Denies motor disturbance, Denies numbness, Denies paralysis, Denies paresthesias, Denies seizures, Denies sensory deficit, Denies spasticity, Denies syncope, Denies tic, Denies tingling, Denies transient paralysis, Denies tremors, Denies vertigo, Denies weakness, Denies visual changes Psychiatric: Reports as per HPI Endocrine: Reports as per HPI, Reports cold intolerance Hematologic/Lymphatic: Reports as per HPI Allergic/Immunologic: Reports as per HPI Past Medical History Past Medical History: Fibromyalgia, GERD/Reflux, Hyperlipidemia, Hypertension History of Any Multi-Drug Resistant Organisms: None Reported Past Surgical History: Bladder Surgery, Hysterectomy Additional Past Surgical History / Comment(s): 1998 partial hysterectomy & bladder suspension, kidney stone removed Past Anesthesia/Blood Transfusion Reactions: No Reported Reaction Past Psychological History: Anxiety Smoking Status: Former smoker Past Alcohol Use History: Rare Past Drug Use History: None Reported - Past Family History Mother Family Medical History: Cancer, Hyperlipidemia Additional Family Medical History / Comment(s): CA: lung Father Family Medical History: Congestive Heart Failure (CHF), Diabetes Mellitus Brother(s) Family Medical History: Coronary Artery Disease (CAD) ( at 56 secondary to LA), Hypertension Sister(s) History Unknown: Yes (Hep C) Daughter(s) Family Medical History: Hypertension Son(s) Family Medical History: No Reported History ( at age 11 secondary to MVA bicycle) Medications and Allergies Home Medications Medication Instructions Recorded Confirmed Type ALPRAZolam [Xanax] 0.25 mg PO BID 03/02/16 06/02/19 History Acetaminophen Tab [Tylenol Tab] 1,000 mg PO Q6HR PRN 03/02/16 06/02/19 History Atorvastatin [Lipitor] 10 mg PO HS 03/02/16 06/02/19 History Calcium Carb-Vit D 500Mg-200Un 1 tab PO QAM 03/02/16 06/02/19 History [Oscal 500+D] Nadolol [Corgard] 20 mg PO DAILY 03/02/16 06/02/19 History Orphenadrine [Norflex] 100 mg PO Q12H 03/02/16 06/02/19 History Ranitidine HCl 150 mg PO BID 03/02/16 06/02/19 History Hydrochlorothiazide 12.5 mg PO DAILY PRN 03/06/16 06/02/19 History Allergies Allergy/AdvReac Type Severity Reaction Status Date / Time hydrocodone bitartrate Allergy "heart Verified 06/02/19 09:22 [From Vicodin] races" latex Allergy Swelling Verified 06/02/19 09:22 prochlorperazine Allergy Pain Verified 06/02/19 09:22 [From Compazine] prochlorperazine edisylate Allergy Pain Verified 06/02/19 09:22 [From Compazine] prochlorperazine maleate Allergy Pain Verified 06/02/19 09:22 [From Compazine] adhesive tape AdvReac Rash/Hives Verified 06/02/19 09:22 Physical Exam Vitals: Vital Signs Temp Pulse Resp BP Pulse Ox 06/02/19 12:11 52 L 18 168/83 100 06/02/19 08:58 98.1 F 54 L 18 146/75 100 Intake and Output 06/01/19 06/02/19 06/02/19 22:59 06:59 14:59 Other: Weight 53.524 kg - Constitutional General appearance: cooperative, no acute distress - EENT Eyes: anicteric sclerae, EOMI, PERRLA, dentition normal, normal appearance ENT: NA/AT, normal oropharynx - Neck Neck: normal ROM - Respiratory Respiratory: bilateral: CTA, negative: diminished, dullness, rales, rhonchi - Cardiovascular Rhythm: regular Heart sounds: normal: S1, S2 Abnormal Heart Sounds: no systolic murmur, no diastolic murmur, no rub, no S3 Gallop, no S4 Gallop, no click, no other - Gastrointestinal General gastrointestinal: normal bowel sounds, soft - Integumentary Integumentary: decreased turgor, normal - Neurologic Neurologic: CNII-XII intact - Musculoskeletal Musculoskeletal: gait normal, strength equal bilaterally - Psychiatric Psychiatric: A&O x's 3, appropriate affect, intact judgment & insight Results CBC & Chem 7: 06/02/19 10:15 06/02/19 10:15 Labs: Abnormal Lab Results - Last 24 Hours (Table) 06/02/19 Range/Units 10:15 Carbon Dioxide 31 H (22-30) mmol/L BUN 19 H (7-17) mg/dL Creatinine 1.07 H (0.52-1.04) mg/dL Laboratory Results WBC 4.2 k/uL (3.8-10.6) 06/02/19 10:15 RBC 4.31 m/uL (3.80-5.40) 06/02/19 10:15 Hgb 13.1 gm/dL (11.4-16.0) 06/02/19 10:15 Hct 41.2 % (34.0-46.0) 06/02/19 10:15 MCV 95.6 fL (80.0-100.0) 06/02/19 10:15 MCH 30.4 pg (25.0-35.0) 06/02/19 10:15 MCHC 31.8 g/dL (31.0-37.0) 06/02/19 10:15 RDW 13.3 % (11.5-15.5) 06/02/19 10:15 Plt Count 184 k/uL (150-450) 06/02/19 10:15 Neutrophils % 49 % 06/02/19 10:15 Lymphocytes % 38 % 06/02/19 10:15 Monocytes % 6 % 06/02/19 10:15 Eosinophils % 1 % 06/02/19 10:15 Basophils % 1 % 06/02/19 10:15 Neutrophils # 2.1 k/uL (1.3-7.7) 06/02/19 10:15 Lymphocytes # 1.6 k/uL (1.0-4.8) 06/02/19 10:15 Monocytes # 0.3 k/uL (0-1.0) 06/02/19 10:15 Eosinophils # 0.0 k/uL (0-0.7) 06/02/19 10:15 Basophils # 0.1 k/uL (0-0.2) 06/02/19 10:15 PT 10.3 sec (9.0-12.0) 06/02/19 10:15 INR 1.0 (<1.2) 06/02/19 10:15 APTT 24.4 sec (22.0-30.0) 06/02/19 10:15 Sodium 141 mmol/L (137-145) 06/02/19 10:15 Potassium 4.2 mmol/L (3.5-5.1) 06/02/19 10:15 Chloride 104 mmol/L (98-107) 06/02/19 10:15 Carbon Dioxide 31 mmol/L (22-30) H 06/02/19 10:15 Anion Gap 6 mmol/L 06/02/19 10:15 BUN 19 mg/dL (7-17) H 06/02/19 10:15 Creatinine 1.07 mg/dL (0.52-1.04) H 06/02/19 10:15 Est GFR (CKD-EPI)AfAm 60 (>60 ml/min/1.73 sqM) 06/02/19 10:15 Est GFR (CKD-EPI)NonAf 52 (>60 ml/min/1.73 sqM) 06/02/19 10:15 Glucose 82 mg/dL (74-99) 06/02/19 10:15 Calcium 9.4 mg/dL (8.4-10.2) 06/02/19 10:15 Magnesium 2.1 mg/dL (1.6-2.3) 06/02/19 10:15 Total Bilirubin 0.4 mg/dL (0.2-1.3) 06/02/19 10:15 AST 33 U/L (14-36) 06/02/19 10:15 ALT 29 U/L (9-52) 06/02/19 10:15 Alkaline Phosphatase 86 U/L (38-126) 06/02/19 10:15 Troponin I <0.012 ng/mL (0.000-0.034) 06/02/19 10:15 NT-Pro-B Natriuret Pep 584 pg/mL 06/02/19 10:15 Total Protein 7.0 g/dL (6.3-8.2) 06/02/19 10:15 Albumin 4.3 g/dL (3.5-5.0) 06/02/19 10:15 Lipase 114 U/L (23-300) 06/02/19 10:15 Assessment and Plan Plan: 1. Atypical chest pain, costochondritis, no known history of CAD however patient did not have any workup in the past significant family history on his son having LA at age 56, patient will be observed with cardiac biomarkers every 6 hours, echocardiogram, d-dimer to be obtained, history of recent travels, consult with cardiology, subcu heparin and when necessary sublingual nitro EKG and first troponin failed to reveal any abnormalities. 2 hypertension on hydrochlorothiazide and is currently uncontrolled hold nadolol for under 55, hold hydrochlorothiazide secondary to renal sufficiency 3 CK D stage III, GFR 52, hold HCTZ at this time. Continues hydralazine when necessary for blood pressure over 160, IV 10 mg nightly 4 hours 4. Hyperlipidemia on Lipitor 10, fasting lipids to be done 5. Acute purulent bronchitis without any evidence off pneumonic infiltrate on chest x-ray, Zithromax oral, 6. 6 History of perrenial ALLERGIES, patient might need Ceretec or Flonase none currently needed 7. History of IBS diarrhea, not on any medication 8. Costochondritis, bone disorder suspected secondary to aging changes, follow outpatient bone densities to PCP 8. Family history of LA At Age 56, son GI prophylaxis and DVT prophylaxis Expected length of stay observation overnight stay
[2019-06-02] MEDS ORDERED: hydrALAZINE HCL 20 MG/ML 1 ML VIAL IVP PRN (13:57)
[2019-06-02] MEDS: AZITHROMYCIN 500 MG TAB PO SCH (15:04)
[2019-06-02 18:14] VITALS: BMI 22.3
[2019-06-02] MEDS: CYCLOBENZAPRINE 10 MG TAB PO SCH (20:24)
[2019-06-02] MEDS: ALPRAZolam 0.25 MG TAB PO SCH (20:24)
[2019-06-02] MEDS ORDERED: HEPARIN SODIUM,PORCINE 5,000 UNIT/ML 1 ML VIAL IV PRN (20:31)
[2019-06-02] MEDS ORDERED: ATORVASTATIN 10 MG TAB PO SCH (21:00)
[2019-06-02] MEDS ORDERED: FAMOTIDINE 20 MG TAB PO SCH (21:00)
--- NOTE | 2019-06-02 22:09 | CONS ---
CONSULTATION DATE OF SERVICE: Dayanara Valle is a 73-year-old lady with a history of gastroesophageal reflux disease, hypertension, hyperlipidemia and fibromyalgia. She came into the emergency room with complaints of having had a cough on and off for a week and some tightness in the chest. This morning, however, she felt more of an intense pressure on the chest after a coughing bout, felt concerned and came in. After arrival she feels well. She has no chest pain. She is resting comfortably, but on close questioning she tells me when she lies back she has discomfort in the chest; when she leans forward she feels better. There is some amount of pleuritic component as well with worsening of the discomfort in the chest with deep breathing. She is resting comfortably at this time of my evaluation without symptoms. PAST MEDICAL HISTORY: Past medical history is remarkable for: 1. Gastroesophageal reflux disease. 2. Hypertension. 3. Hyperlipidemia. 4. Fibromyalgia. 5. She has had some bladder surgery. 6. She has had hysterectomy. MEDICATIONS: Medications at home included: 1. Xanax. 2. Lipitor 10 mg daily. 3. Nadolol 20 mg daily. 4. Ranitidine 150 mg b.i.d. 5. Hydrochlorothiazide 12.5 mg daily. ALLERGIES: 1. VICODIN. 2. COMPAZINE. PHYSICAL EXAMINATION: Blood pressure is 150/70. Pulse rate is 58 per minute, regular. HEENT: Unremarkable. Fundus was not examined by me. Neck is supple. There is no JVD. I do not hear a carotid bruit. Heart exam reveals S1, S2 heard normally. There is no rub, murmur or gallop. Lungs are clear. Abdomen is soft, nontender. Lower extremities reveal palpable pulses. No edema. Central nervous system is normal. EKG revealed sinus mechanism, sinus bradycardia. There is no WI depression. There is no ST elevation. This is an unremarkable EKG. LABORATORY DATA: Laboratory data suggest that the troponin levels are normal. There are 2 sets back. No other significant abnormalities are noted. IMPRESSION: 1. Chest pain syndrome; seems atypical. There is a pleuritic component. It does not seem anginal. 2. Hypertension. 3. Hyperlipidemia. 4. History of fibromyalgia. 5. Gastroesophageal reflux disease. RECOMMENDATIONS: I am recommending a D-dimer. We will continue heparin, continue monitoring, and I will review the echocardiogram. Based on the findings, I will make further recommendations. Troponin levels are normal. Her D-dimer will be obtained today. Based on clinical course, I will make further recommendations. Thank you very much for the consult. SEDA / ISABELA: [id number] /
[2019-06-03] MEDS: CYCLOBENZAPRINE 10 MG TAB PO SCH (06:37)
[2019-06-03 07:04] LABS: Basophils % (A) 1 %; Eosinophils # (A) 0.1 k/uL (0-0.7); Eosinophils % (A) 1 %; HGB 12.1 gm/dL (11.4-16.0); Lymphocytes # (A) 1.9 k/uL (1.0-4.8); Lymphocytes % (A) 33 %; MCHC 30.9 g/dL (31.0-37.0); MCV 93.7 fL (80.0-100.0); Mean Platelet Volume 8.8; Monocytes # (A) 0.3 k/uL (0-1.0); Monocytes % (A) 6 %; Neutrophils # (A) 3.4 k/uL (1.3-7.7); Neutrophils % (A) 58 %; Platelet Count 169 k/uL (150-450); RBC 4.16 m/uL (3.80-5.40); RDW 12.1 % (11.5-15.5); WBC 5.9 k/uL (3.8-10.6)
[2019-06-03 07:38] LABS: Potassium 4.1 mmol/L (3.5-5.1)
[2019-06-03 08:18] VITALS: PULSE 56; RESP 16
[2019-06-03] MEDS ORDERED: CAFFEINE CITRATE 60 MG/3 ML VIAL IV PRN (08:46)
[2019-06-03] MEDS ORDERED: DIPYRIDAMOLE IV ONE (08:46)
[2019-06-03] MEDS ORDERED: SODIUM CHLORIDE 0.9% IV ONE (08:46)
[2019-06-03] MEDS ORDERED: AMINOPHYLLINE 500 MG/20 ML VIAL IV PRN (08:46)
[2019-06-03] MEDS ORDERED: NADOLOL 20 MG TAB PO SCH (09:00)
[2019-06-03] MEDS ORDERED: ASPIRIN 325 MG TAB PO SCH (09:00)
[2019-06-03] MEDS ORDERED: CALCIUM CARB-VIT D 500MG-200UN 1 EACH TAB PO SCH (09:00)
[2019-06-03] MEDS ORDERED: FAMOTIDINE 20 MG TAB PO SCH (09:00)
--- NOTE | 2019-06-03 10:49 | P.PN ---
Subjective This is a pleasant 73-year-old female past medical history significant for gastroesophageal reflux disease, hypertension, dyslipidemia and fibromyalgia. She is seen and examined resting comfortably in bed in no acute distress. She has had no further symptoms of chest discomfort with coughing. Laboratory data reviewed, WBC 5.9, hemoglobin 12.1, platelets 169, sodium 141, potassium 4.1, creatinine 1.0, cardiac enzymes negative 4, LDL 66 and d-dimer 0.25. Blood pressure 159/83 heart rate 56 afebrile maintaining oxygen saturation on room air. Echocardiogram has been obtained and will be reviewed. GENERAL: Well-appearing, well-nourished and in no acute distress. NECK: Supple without JVD or thyromegaly. LUNGS: Breath sounds clear to auscultation bilaterally. Respiration equal and unlabored. No wheezes, rales or rhonchi. HEART: Regular rate and rhythm without murmurs, rubs or gallops. S1 and S2 heard. EXTREMITIES: Normal range of motion, no edema. No clubbing or cyanosis. Peripheral pulses intact. ASSESSMENT Chest pain, atypical. An acute coronary event has been ruled out. Hypertension Dyslipidemia Gastroesophageal reflux disease Fibromyalgia PLAN Echocardiogram has been obtained and will be reviewed. Perform Persantine stress test to assess for reversible cardiac ischemia. If abnormality is seen on the stress test will consider coronary angiography. If stress test is normal she is stable for discharge from a cardiac perspective. Nurse Practitioner note has been reviewed, I agree with a documented findings and plan of care. Patient was seen and examined. Objective - Vital Signs Vital signs: Vital Signs Temp 97.5 F L 06/03/19 07:10 Pulse 56 L 06/03/19 07:10 Resp 16 06/03/19 07:10 BP 159/83 06/03/19 07:10 Pulse Ox 99 06/03/19 07:10 Intake & Output 06/02/19 06/03/19 06/03/19 18:59 06:59 18:59 Intake Total 37.896 36.529 Balance 37.896 36.529 Weight 53.524 kg 53.524 kg Intake: Intake, IV Titration 37.896 36.529 Amount Heparin Sod,Pork in 0.45% 37.896 36.529 NaCl 25,000 unit In 0.45 % NaCl 1 250ml.bag @ 12 UNITS/KG/HR 6.423 mls/hr IV .Q24H [facility] Rx#: [id number] Other: Voiding Method Toilet Toilet # Voids 1 - Labs CBC & Chem 7: 06/03/19 06:36 06/03/19 06:36 Labs: Abnormal Lab Results - Last 24 Hours (Table) 06/02/19 06/02/19 06/03/19 Range/Units 10:15 17:04 02:01 MCHC (31.0-37.0) g/dL APTT 118.9 H* 40.7 H (22.0-30.0) sec Carbon Dioxide 31 H (22-30) mmol/L BUN 19 H (7-17) mg/dL Creatinine 1.07 H (0.52-1.04) mg/dL HDL Cholesterol (40-60) mg/dL 06/03/19 06/03/19 Range/Units 06:36 06:36 MCHC 30.9 L (31.0-37.0) g/dL APTT (22.0-30.0) sec Carbon Dioxide (22-30) mmol/L BUN 20 H (7-17) mg/dL Creatinine (0.52-1.04) mg/dL HDL Cholesterol 80 H (40-60) mg/dL
--- NOTE | 2019-06-03 10:56 | ECHOF ---
Referral Reason:chest pain MEASUREMENTS -------- HEIGHT: 154.9 cm WEIGHT: 53.5 kg BP: 168/83 RVIDd: 2.8 cm (< 3.3) IVSd: 1.2 cm (0.6 - 1.1) LVIDd: 3.1 cm (3.9 - 5.3) LVPWd: 1.4 cm (0.6 - 1.1) IVSs: 1.7 cm LVIDs: 2.0 cm LVPWs: 1.7 cm LAESV Index (A-L): 29.48 ml/m Ao Diam: 2.4 cm (2.0 - 3.7) AV Cusp: 1.5 cm (1.5 - 2.6) LA Diam: 3.7 cm (2.7 - 3.8) EPSS: 0.4 cm MV E [place]: 1.14 m/s MV DecT: 198 ms MV A [place]: 0.62 m/s MV E/A Ratio: 1.84 RAP: 5.00 mmHg RVSP: 39.50 mmHg MV EF SLOPE: 68.42 mm/s (70 - 150) MV EXCURSION: 0.98 cm (> 18.000) FINDINGS -------- Sinus rhythm. This was a technically good study. The left ventricular size is normal. There is mild concentric left ventricular hypertrophy. Overa ll left ventricular systolic function is normal with, an EF between 55 - 60 %. The diastolic fillin g pattern is normal for the age of the patient. The right ventricle is normal in size. Left atrium is mildly dilated by volume. The right atrial size is normal. Interatrial and interventricular septum intact. The aortic valve is trileaflet and appears structurally normal. There is no evidence of aortic regu rgitation. There is no evidence of aortic stenosis. Mild mitral annular calcification present. Jodnddfk-ef-ohkhne mitral regurgitation is present. Mild tricuspid regurgitation present. There is mild pulmonary hypertension. The right ventricular systolic pressure, as measured by Doppler, is 39.50mmHg. There is no pulmonic regurgitation present. The aortic root size is normal. The inferior vena cava was not well visualized. There is no pericardial effusion. CONCLUSIONS -------- 1. Sinus rhythm. 2. This was a technically good study. 3. The left ventricular size is normal. 4. There is mild concentric left ventricular hypertrophy. 5. Overall left ventricular systolic function is normal with, an EF between 55 - 60 %. 6. The diastolic filling pattern is normal for the age of the patient. 7. The right ventricle is normal in size. 8. Left atrium is mildly dilated by volume. 9. The right atrial size is normal. 10. Interatrial and interventricular septum intact. 11. The aortic valve is trileaflet and appears structurally normal. 12. There is no evidence of aortic regurgitation. 13. There is no evidence of aortic stenosis. 14. Mild mitral annular calcification present. 15. Abbybfzf-rc-bbmqfq mitral regurgitation is present. 16. Mild tricuspid regurgitation present. 17. There is mild pulmonary hypertension. 18. The right ventricular systolic pressure, as measured by Doppler, is 39.50mmHg. 19. There is no pulmonic regurgitation present. 20. The aortic root size is normal. 21. The inferior vena cava was not well visualized. 22. There is no pericardial effusion. CORK WIRER: Treva Morocho RDCS
[2019-06-03] MEDS: AZITHROMYCIN 500 MG TAB PO SCH (11:37)
[2019-06-03] MEDS: ALPRAZolam 0.25 MG TAB PO SCH (11:37)
[2019-06-03 11:41] VITALS: BP 182/79; TEMP 97.6
--- NOTE | 2019-06-03 12:17 | NM ---
EXAMINATION TYPE: NM stress persantine cardiolit DATE OF EXAM: 06/03/2019 COMPARISON: NONE HISTORY: Chest pain TECHNIQUE: After the intravenous administration of 9.83 mCi Tc 99m Sestamibi - Cardiolite resting SP ECT images acquired 45 minutes post injection. The patient received 30.5 mg Persantine, 25.3 mCi Tc 99m Sestamibi - Stress images obtained 30 minute s post injection FINDINGS: Review of stress and rest SPECT images demonstrates no distinct perfusion abnormality. Gated analysi s shows normal wall motion with an estimated left ventricular ejection fraction of 75 %. TID calculat ed within normal limits at 1.06. IMPRESSION: No scintigraphic evidence for reversible ischemia.
[2019-06-03] MEDS ORDERED: LOSARTAN 50 MG TAB PO SCH (12:45)
--- NOTE | 2019-06-03 13:59 | P.DS ---
Providers Date of admission: 06/02/19 11:31 Expected date of discharge: 06/03/19 Attending physician: Lor Collazo Consults: 06/02/19 11:31 Consult Physician Urgent Consulting Provider: Fran Laws Consult Reason/Comments: chest pain Do you want consulting provider notified?: Yes Primary care physician: Yovana Davidson [facility] Course: This is a 73-year-old pleasant female patient of Dr. Davidson history of hypertension hyperlipidemia ALLERGIES GERD fibromyalgia, admitted to the emergency room secondary to chest pain that occurred today, substernal, worse with deep inspiration and coughing spells, patient does not have any shortness of breath with exertion, patient doesn't have any edema. Patient had had a cough for approximately one month, intermittent purulent, no treatments prior to admission. Patient has no fever has been cold all the time without any shaking chills, no edema, patient comes from [place] and was seen by Dr. Davidson in February 2019 for routine check and was okay at that time. Patient has, members are sick, with bronchitis mainly. Denies any history of cardiac cath the past, no stress test. No history of diabetes mellitus no stroke no CVA no CHF, no asthma or COPD In the emergency room creatinine was 1.07, normal CBC, troponin off 0.012, lipase normal at 114, liver function tests normal chest x-ray shows no acute airspace disease, no effusion or pneumothorax, EKG shows bradycardia 50 heart rate, the ER physician has decided to get her admitted for observation, for troponin evaluation echocardiogram and cardiology consultation 06/03: Troponins are negative on 4 draws. Triglycerides 77, cholesterol 161, LDL 66, HDL 80. Patient has been seen by cardiology and Persantine stress test has been ordered and came back negative. Echocardiogram reveals EF of 55-60% with mild concentric left ventricular hypertrophy, diastolic filling pattern is normal for age, no aortic stenosis, moderate to severe mitral regurgitation, mild tricuspid regurgitation, mild pulmonary hypertension. The patient has been cleared for discharge by cardiology. Patient will be discharged home today in stable condition. Discharge diagnoses: 1. Atypical chest pain, costochondritis 2. Hypertension 3. CKD stage III 4. Hyperlipidemia on Lipitor 10, fasting lipids to be done 5. Acute purulent bronchitis 6. History of seasonal ALLERGIES 7. History of IBS diarrhea, stable 8. Costochondritis, bone disorder suspected secondary to aging changes, follow outpatient bone densities to PCP 9. Family history of [place] At Age 56, son Discharge plan: Home Impression and plan of care have been directed as dictated by the signing physician. Tammi Thibodeaux nurse practitioner acting as scribe for signing physician. Patient Condition at Discharge: Good Plan - Discharge Summary Discharge Rx Participant: No New Discharge Prescriptions: New Fluticasone Nasal [place] [Flonase Nasal [place]] 2 spr EA NOSTRIL DAILY #1 bottle Azithromycin [Zithromax Z-pack] 0 mg PO DIRECTED #6 tab Losartan [Cozaar] 100 mg PO DAILY #60 tab Continue Calcium Carb-Vit D 500Mg-200Un [Oscal 500+D] 1 tab PO QAM Acetaminophen Tab [Tylenol] 1,000 mg PO Q6HR PRN PRN Reason: Pain Atorvastatin [Lipitor] 10 mg PO HS Ranitidine HCl 150 mg PO BID Orphenadrine [Norflex] 100 mg PO Q12H Nadolol [Corgard] 20 mg PO DAILY ALPRAZolam [Xanax] 0.25 mg PO BID Hydrochlorothiazide 12.5 mg PO DAILY PRN PRN Reason: elevated BP Discharge Medication List ALPRAZolam [Xanax] 0.25 mg PO BID 03/02/16 [History] Acetaminophen Tab [Tylenol] 1,000 mg PO Q6HR PRN 03/02/16 [History] Atorvastatin [Lipitor] 10 mg PO HS 03/02/16 [History] Calcium Carb-Vit D 500Mg-200Un [Oscal 500+D] 1 tab PO QAM 03/02/16 [History] Nadolol [Corgard] 20 mg PO DAILY 03/02/16 [History] Orphenadrine [Norflex] 100 mg PO Q12H 03/02/16 [History] Ranitidine HCl 150 mg PO BID 03/02/16 [History] Hydrochlorothiazide 12.5 mg PO DAILY PRN 03/06/16 [History] Azithromycin [Zithromax Z-pack] 0 mg PO DIRECTED #6 tab 06/03/19 [Rx] Fluticasone Nasal [place] [Flonase Nasal [place]] 2 spr EA NOSTRIL DAILY #1 bottle 06/03/19 [Rx] Losartan [Cozaar] 100 mg PO DAILY #60 tab 06/03/19 [Rx] Follow up Appointment(s)/Referral(s): Yovana Davidson MD [Primary Care Provider] - 1 Week Patient Instructions/Handouts: Chest Pain (GEN) Discharge Disposition: HOME SELF-CARE
--- NOTE | 2019-06-03 20:19 | EST ---
EXERCISE STRESS DATE OF SERVICE: 06/03/2019 AGE: 73 SEX: Female HT: 5'1" WT: 118 pounds PROTOCOL: Persantine Cardiolite STAGE: DURATION OF EXERCISE: HEART RATE REST: 54 BLOOD PRESSURE REST: 186/84 MAXIMUM HEART RATE ACHIEVED: 75 MAXIMUM BLOOD PRESSURE: 186/84 85% MPHR: 100% MPHR: METS: INDICATIONS: Chest pain. CLINICAL INFORMATION: Baseline EKG revealed normal sinus rhythm with sinus bradycardia; no acute changes. Patient was administered Persantine as per protocol. Heart rate changed from 54 to 74 beats per minute. Blood pressure changed from 186/80 to 148/73. EKG was unremarkable. Patient did not have angina or arrhythmia. By EKG criteria, this is an unremarkable Persantine stress test. The nuclear scan results, which are more pertinent, will be reported by the radiologist. XIL / GIGIN: [id number] /
== END 2019-06-03 13:28 | disposition home or self-care (01) ==
LOC: EC 08:48 → 1SOBS 11:31
PROVIDERS: ADMIT Family Medicine; ATTEND Family Medicine
DX: R07.89 Other chest pain (principal); J20.9 Acute bronchitis, unspecified; M94.0 Chondrocostal junction syndrome [Tietze]; I12.9 Hypertensive chronic kidney disease with stage 1 through stage 4 chronic kidney disease, or unspecified chronic kidney disease; N18.3 Chronic kidney disease, stage 3 (moderate); I08.1 Rheumatic disorders of both mitral and tricuspid valves; I27.20 Pulmonary hypertension, unspecified; E78.5 Hyperlipidemia, unspecified; M79.7 Fibromyalgia; K21.9 Gastro-esophageal reflux disease without esophagitis; F41.9 Anxiety disorder, unspecified; Z90.711 Acquired absence of uterus with remaining cervical stump; R00.1 Bradycardia, unspecified; K58.0 Irritable bowel syndrome with diarrhea; J30.2 Other seasonal allergic rhinitis; Z79.899 Other long term (current) drug therapy; Z91.040 Latex allergy status; Z88.5 Allergy status to narcotic agent; Z88.8 Allergy status to other drugs, medicaments and biological substances; Z91.048 Other nonmedicinal substance allergy status; Z87.891 Personal history of nicotine dependence; Z80.1 Family history of malignant neoplasm of trachea, bronchus and lung; Z83.42 Family history of familial hypercholesterolemia; Z83.3 Family history of diabetes mellitus; Z82.49 Family history of ischemic heart disease and other diseases of the circulatory system
CPT/HCPCS: 96374; 99285; 36415; 93005; 93017; 93306; 85379; 83880; 80061; 80053; 80048; 83690; 83735; 84484 ×2; 85025 ×2; 85610; 85730 ×2; 71046; 78452; G0378 ×2; A9500; J1644 ×2; J1245

== ENCOUNTER → 2019-07-11 | Outpatient (CLI) | payer MEDICARE, BC ==
--- NOTE | 2019-07-11 11:30 | BD ---
EXAMINATION TYPE: Axial Bone Density DATE OF EXAM: 07/11/2019 COMPARISON: 03/29/2017 CLINICAL HISTORY: M 81.0 Height: 60.5 IN Weight: 121 LBS FRAX RISK QUESTIONS: Secondary Osteoporosis: 3. Menopause before 45: YES AGE 44 PARTIAL HYST RISK FACTORS HISTORY OF: Active: YES Diet low in dairy products/other sources of calcium: YES Postmenopausal woman: AGE 44 PARTIAL HYST Take estrogen and/or progesterone medications: NOT NOW TOOK FROM AGE [age] MEDICATIONS: Osteoporosis Medications: YES Which medication: PROLIA How Lon YEARS Additional Medications: CALCIUM,PROLIA, BLOOD PRESSURE MEDS, ORPHENDRINE, RANITIDE, PROPANOLOL, ALPRA ZOLAM, M[place]EL[place]AST, LIPITOR, EXAM MEASUREMENTS: Bone mineral densitometry was performed using the [employer] System. Bone mineral density as measured about the Lumbar spine is: ----- L1-L4(G/cm2): 1.269 T Score Values are as follows: ----- L2: 2.5 ----- L3: 3.5 ----- L4: -0.9 ----- L1-L4: 0.7 Bone mineral density has: Increased 12.1% since study of: 03/29/2017 Bone mineral density about the R hip (g/cm2): 0.651 Bone mineral density about the L hip (g/cm2): 0.649 T Score values are as follows: -----R Neck: -2.8 -----L Neck: -2.8 -----R Total: -2.4 -----L Total: -2.7 Bone mineral density has: Increased 2.9% since study of: 03/29/2017 IMPRESSION: Osteoporosis (T Score less than -2.5). There is increased fracture risk and therapy is usually indicated based on age. Re-Screen 1-2 years. NOTE: T-SCORE=SD OF THE YOUNG ADULT MEAN.
== END | disposition home or self-care (01) ==
LOC: RADBDWWP 08:03
PROVIDERS: ATTEND Internal Medicine
DX: M81.0 Age-related osteoporosis without current pathological fracture (principal)
CPT/HCPCS: 77080

== ENCOUNTER → 2020-04-23 | Outpatient (CLI) | payer MEDICARE, BC ==
[2020-04-23 09:25] LABS: Basophils % (A) 1 %; Eosinophils # (A) 0.1 k/uL (0-0.7); Eosinophils % (A) 1 %; HCT 40.3 % (34.0-46.0); HGB 12.6 gm/dL (11.4-16.0); Lymphocytes # (A) 1.7 k/uL (1.0-4.8); Lymphocytes % (A) 39 %; MCH 29.1 pg (25.0-35.0); MCHC 31.3 g/dL (31.0-37.0); MCV 92.9 fL (80.0-100.0); Mean Platelet Volume 10.1; Monocytes # (A) 0.3 k/uL (0-1.0); Monocytes % (A) 7 %; Neutrophils # (A) 2.1 k/uL (1.3-7.7); Neutrophils % (A) 49 %; Platelet Count 180 k/uL (150-450); RBC 4.34 m/uL (3.80-5.40); RDW 12.9 % (11.5-15.5); WBC 4.3 k/uL (3.8-10.6)
[2020-04-23 16:41] LABS: African American GFR (CKD) 57.7 (60.0-200.0); Albumin 4.4 g/dL (3.80-4.90); Albumin/Globulin Ratio 2.1 (1.60-3.17); Anion Gap 5.2 mmol/L (4.00-12.00); BUN/Creat Ratio 23.64 Ratio (12.00-20.00); Calcium 9.5 mg/dL (8.7-10.3); Carbon Dioxide 30.8 mmol/L (21.6-31.8); Chol/HDL Ratio 2.36; Globulin 2.1 g/dL (1.6-3.3); LDL Cholesterol,Calculated 84.2 mg/dL (0.0-131.0); Non-African American GFR(CKD) 49.8 (60.0-200.0); Potassium 4.3 mmol/L (3.5-5.5); Total Bilirubin 0.5 mg/dL (0.3-1.2); Total Protein 6.5 g/dL (6.2-8.2); VLDL Calculation 13.8 mg/dL (5.00-40.00)
== END | disposition home or self-care (01) ==
LOC: LABWHC1 08:49
PROVIDERS: ATTEND Internal Medicine
DX: I10 Essential (primary) hypertension (principal); E78.5 Hyperlipidemia, unspecified
CPT/HCPCS: 36415; 80053; 80061; 84443; 85025

== ENCOUNTER → 2020-05-05 | Outpatient (CLI) | payer MEDICARE, BC ==
--- NOTE | 2020-05-06 07:34 | US ---
EXAMINATION TYPE: US kidneys/renal and bladder DATE OF EXAM: 05/05/2020 COMPARISON: None CLINICAL HISTORY: 74 year-old female N18.2 Chronic kidney disease, stage 2 (mild). TECHNIQUE: Multiple sonographic images of the kidneys and bladder are obtained. FINDINGS: EXAM MEASUREMENTS: Right Kidney: 8.9 x 3.7 x 4.1 cm with a centrally located, medial 1.2 cm shadowing calculus. No hydr onephrosis. Left Kidney: 8.4 x 4.5 x 3.7 cm with a 5 mm calculus at the midpole. There is some limited visualizat ion of the lower pole due to bowel gas shadowing. No hydronephrosis. Bladder: No gross abnormality. Bilateral Jets seen: No IMPRESSION: 1. No hydronephrosis. 2. A 1.2 cm nonobstructive calculus on the right but located centrally in the kidney and a 5 mm nonob structive calculus on the left. 3. Relatively small size of the kidneys suggest chronic medical renal disease.
== END | disposition home or self-care (01) ==
LOC: RADUSWWP 16:14
PROVIDERS: ATTEND Internal Medicine
DX: N20.0 Calculus of kidney (principal); N18.2 Chronic kidney disease, stage 2 (mild)
CPT/HCPCS: 76770

== ENCOUNTER 2020-06-15 21:18 | Emergency (ER) | payer MEDICARE, BC ==
[2020-06-15 21:25] VITALS: BP 165/82; PULSE 68; RESP 18; TEMP 98.1
--- NOTE | 2020-06-15 21:50 | XR ---
Right foot HISTORY: Trauma and pain 3 views of the right foot Toenail injury is noted at the first digit. Bone mineralization, joint spaces and alignment are maint ained. IMPRESSION: No acute fracture or dislocation.
--- NOTE | 2020-06-15 22:00 | ED ---
Lower Extremity Injury HPI - General Chief Complaint: Extremity Injury, Lower Stated Complaint: RT great toe injury Time Seen by Provider: 06/15/20 21:35 Source: patient Mode of arrival: wheelchair Limitations: no limitations - History of Present Illness Initial Comments: Patient is 74-year-old female presenting to the emergency department with chief complaint of back toe injury. Patient states she was lifting a box when she accidentally dropped it and now has a partial avulsion of the toenail. Patient reports it is minimally painful. Patient states there is some pain when pressure is applied to the region. States her tetanus is up-to-date. Denies taking medication for this at this. Denies numbness or tingling. Has full range of motion of the toe. - Related Data Home Medications Medication Instructions Recorded Confirmed ALPRAZolam [Xanax] 0.25 mg PO BID 03/02/16 06/02/19 Acetaminophen Tab [Tylenol] 1,000 mg PO Q6HR PRN 03/02/16 06/02/19 Atorvastatin [Lipitor] 10 mg PO HS 03/02/16 06/02/19 Calcium Carb-Vit D 500Mg-200Un 1 tab PO QAM 03/02/16 06/02/19 [Oscal 500+D] Orphenadrine [Norflex] 100 mg PO Q12H 03/02/16 06/02/19 Ranitidine HCl 150 mg PO BID 03/02/16 06/02/19 nadoloL [Corgard] 20 mg PO DAILY 03/02/16 06/02/19 hydroCHLOROthiazide 12.5 mg PO DAILY PRN 03/06/16 06/02/19 Previous Rx's Medication Instructions Recorded Azithromycin [Zithromax Z-pack] 0 mg PO DIRECTED #6 tab 06/03/19 Fluticasone Nasal [place] [Flonase 2 spr EA NOSTRIL DAILY #1 bottle 06/03/19 Nasal [place]] Losartan [Cozaar] 100 mg PO DAILY #60 tab 06/03/19 Allergies Allergy/AdvReac Type Severity Reaction Status Date / Time hydrocodone bitartrate Allergy "heart Verified 06/15/20 21:25 [From Vicodin] races" latex Allergy Swelling Verified 06/15/20 21:25 prochlorperazine Allergy Pain Verified 06/15/20 21:25 [From Compazine] prochlorperazine edisylate Allergy Pain Verified 06/15/20 21:25 [From Compazine] prochlorperazine maleate Allergy Pain Verified 06/15/20 21:25 [From Compazine] adhesive tape AdvReac Rash/Hives Verified 06/15/20 21:25 Review of Systems ROS Statement: Those systems with pertinent positive or pertinent negative responses have been documented in the HPI. ROS Other: All systems not noted in ROS Statement are negative. Past Medical History Past Medical History: Fibromyalgia, GERD/Reflux, Hyperlipidemia, Hypertension History of Any Multi-Drug Resistant Organisms: None Reported Past Surgical History: Bladder Surgery, Hysterectomy Additional Past Surgical History / Comment(s): 1998 partial hysterectomy & bladder suspension, kidney stone removed, skin cancer removed from right forearm Past Anesthesia/Blood Transfusion Reactions: No Reported Reaction Past Psychological History: Anxiety Past Alcohol Use History: Rare Past Drug Use History: None Reported - Past Family History Mother Family Medical History: Cancer, Hyperlipidemia Additional Family Medical History / Comment(s): CA: lung Father Family Medical History: Congestive Heart Failure (CHF), Diabetes Mellitus Brother(s) Family Medical History: Coronary Artery Disease (CAD), Hypertension Sister(s) History Unknown: Yes Daughter(s) Family Medical History: Hypertension Son(s) Family Medical History: No Reported History General Exam Limitations: no limitations General appearance: alert, in no apparent distress Head exam: Present: atraumatic, normocephalic, normal inspection Eye exam: Present: normal appearance, PERRL, EOMI Pupils: Present: normal accommodation ENT exam: Present: normal exam, normal oropharynx, mucous membranes moist, TM's normal bilaterally, normal external ear exam Neck exam: Present: normal inspection, full ROM. Absent: tenderness Respiratory exam: Present: normal lung sounds bilaterally. Absent: respiratory distress, wheezes Cardiovascular Exam: Present: regular rate, normal rhythm, normal heart sounds Extremities exam: Present: full ROM, tenderness, normal capillary refill (Tenderness at the site of injury), other (+2 dorsalis pedis and posterior tibialis bilaterally.). Absent: normal inspection (Partial toenail avulsion of the right big toe) Back exam: Present: normal inspection, full ROM. Absent: tenderness Neurological exam: Present: alert, oriented X3 Psychiatric exam: Present: normal affect, normal mood Skin exam: Present: warm, dry, intact, normal color Course Vital Signs 06/15/20 21:21 Temperature 98.1 F Pulse Rate 68 Respiratory 18 Rate Blood Pressure 165/82 O2 Sat by Pulse 100 Oximetry Medical Decision Making - Medical Decision Making Patient is 74-year-old male presenting to the emergency department with a chief complaint of a toe injury. On exam patient has partial avulsion of the right big toenail. X-ray reveals no signs of fracture dislocations. I was able to reposition the toenail back to his original position. Dressing was applied to keep the toenail in place. Her tetanus is up-to-date. Patient advised to follow with a primary care physician. Return parameters were thoroughly discussed with patient was understanding and agreeable. Case discussed physician. Disposition Clinical Impression: Avulsion of toenail of right foot, Injury of right great toe Disposition: HOME SELF-CARE Condition: Stable Instructions (If sedation given, give patient instructions): Nail Avulsion (ED) Additional Instructions: Alternate between Tylenol and Motrin for pain control. Return to emergency department if symptoms worsen. Is patient prescribed a controlled substance at d/c from ED?: No Referrals: Yovana Davidson MD [Primary Care Provider] - 1-2 days Time of Disposition: 22:27
== END 2020-06-15 22:36 | disposition home or self-care (01) ==
LOC: EC 21:18
DX: S99.921A Unspecified injury of right foot, initial encounter (principal); S91.201A Unspecified open wound of right great toe with damage to nail, initial encounter; F41.9 Anxiety disorder, unspecified; E78.5 Hyperlipidemia, unspecified; K21.9 Gastro-esophageal reflux disease without esophagitis; I10 Essential (primary) hypertension; Z79.899 Other long term (current) drug therapy; Z91.040 Latex allergy status; Z88.5 Allergy status to narcotic agent; Z88.8 Allergy status to other drugs, medicaments and biological substances; Z91.048 Other nonmedicinal substance allergy status; Z85.828 Personal history of other malignant neoplasm of skin; W20.8XXA Other cause of strike by thrown, projected or falling object, initial encounter
CPT/HCPCS: 99283

== ENCOUNTER → 2020-08-18 | Outpatient (CLI) | payer MEDICARE, BC ==
--- NOTE | 2020-08-19 11:29 | MM ---
Reason for exam: screening (asymptomatic). Last mammogram was performed 1 year and 4 months ago. History: Patient is postmenopausal and history of other cancer. Family history of breast cancer in maternal aunt at age 65. Physical Findings: A clinical breast exam by your physician is recommended on an annual basis and results should be correlated with mammographic findings. MG 3D Screening Mammo W/Cad Bilateral CC and MLO view(s) were taken. Prior study comparison: April 22, 2019, bilateral MG 3d screening mammo w/cad. April 11, 2018, bilateral MG 3d screening mammo w/cad. The breast tissue is heterogeneously dense. This may lower the sensitivity of mammography. Benign appearing calcifications in the right breast. No significant changes when compared with prior studies. ASSESSMENT: Benign, BI-RAD 2 RECOMMENDATION: Routine screening mammogram of both breasts in 1 year.
== END | disposition home or self-care (01) ==
LOC: RADMAMWWP 07:13
PROVIDERS: ATTEND Internal Medicine
DX: Z12.31 Encounter for screening mammogram for malignant neoplasm of breast (principal)
CPT/HCPCS: 77063; 77067

== ENCOUNTER → 2022-03-02 | Outpatient (CLI) | payer MEDICARE, BC ==
--- NOTE | 2022-03-03 12:17 | MM ---
Reason for exam: screening (asymptomatic). Last mammogram was performed 1 year and 6 months ago. History: Patient is postmenopausal and history of other cancer. Family history of breast cancer in maternal aunt at age 65. Physical Findings: A clinical breast exam by your physician is recommended on an annual basis and results should be correlated with mammographic findings. MG 3D Screening Mammo W/Cad Bilateral CC and MLO view(s) were taken. Prior study comparison: August 18, 2020, bilateral MG 3d screening mammo w/cad. April 22, 2019, bilateral MG 3d screening mammo w/cad. The breast tissue is heterogeneously dense. This may lower the sensitivity of mammography. There are benign appearing round calcifications in the right breast. There is no discrete abnormality. ASSESSMENT: Negative, BI-RAD 1 RECOMMENDATION: Routine screening mammogram of both breasts in 1 year.
== END | disposition home or self-care (01) ==
LOC: RADMAMWWP 12:35
PROVIDERS: ATTEND Internal Medicine
DX: Z12.31 Encounter for screening mammogram for malignant neoplasm of breast (principal); Z78.0 Asymptomatic menopausal state; Z80.3 Family history of malignant neoplasm of breast
CPT/HCPCS: 77063; 77067

== ENCOUNTER → 2022-03-09 | Outpatient (CLI) | payer MEDICARE, BC ==
--- NOTE | 2022-03-09 13:53 | BD ---
EXAMINATION TYPE: Axial Bone Density DATE OF EXAM: 03/09/2022 COMPARISON: Prior bone scan 2018 CLINICAL HISTORY: 76 years year old Female. ICD-10 CODE: M81.0 AGE RELATED OSTEOPOROSIS Height: 60 Weight: 120.5 FRAX RISK QUESTIONS: Alcohol (3 or more units per day): NO Family History (Parent hip fracture): NO Glucocorticoids (More than 3mos): NO History of Fracture in Adulthood: NO Secondary Osteoporosis: 1. Type 1 Diabetes: NO 2. Hyperthyroidism: NO 3. Menopause before 45: YES 4. Malnutrition: NO 5. Chronic liver disease: NO Rheumatoid Arthritis: NO Current Tobacco Use: NO RISK FACTORS HISTORY OF: Hip Fracture (Right/Left): NO Spine Fracture: NO History of Wrist Fracture: NO Surgery to Spine/Hip(right/left)/Wrist (right/left): NO Family History of Osteoporosis: NO Active: YES Diet low in dairy products/other sources of calcium: NO Postmenopausal woman: YES Take estrogen and/or progesterone medications: NO Lost more than 2 inches in height since high school: NO Frequent falls: NO Poor Health: NO Hyperparathyroidism: NO Adrenal Insufficiency: NO MEDICATIONS: Prednisone or other steroids: NO Thyroid Medications: NO Osteoporosis Medications: RALOXIFENE How Lon YEARS Additional Medications: ALPRAZOLAM, PEPCID, LISINOPRIL, LIPITOR, CALTRATE Additional History: EXAM MEASUREMENTS: Bone mineral densitometry was performed using the [employer] System. Bone mineral density as measured about the Lumbar spine is: ----- L1-L4(G/cm2): 1.011 T Score Values are as follows: ----- L1: -3.0 ----- L2: -1.5 ----- L3: 0.4 ----- L4: -1.2 ----- L1-L4: -1.4 Bone mineral density has: DECREASED 20.5% since study of: 07/11/2019 Bone mineral density about the R hip (g/cm2): 0.656 Bone mineral density about the L hip (g/cm2): 0.659 T Score values are as follows: -----R Neck: -2.7 -----L Neck: -2.7 -----R Total: -2.6 -----L Total: -3.0 Bone mineral density has: DECREASED 4% since study of: 07/11/2019 FRAX%s: The graph provided illustrates a 18.7% chance for a major osteoporotic fx and a 6.8% chance f or the hips probability for fx in 10 years time. IMPRESSION: Osteoporosis (T Score less than -2.5) remains present. There is increased fracture risk and therapy is usually indicated based on age. Re-Screen 1-2 years. NOTE: T-SCORE=SD OF THE YOUNG ADULT MEAN.
== END | disposition home or self-care (01) ==
LOC: RADBDWWP 12:28
PROVIDERS: ATTEND Internal Medicine
DX: M81.0 Age-related osteoporosis without current pathological fracture (principal)
CPT/HCPCS: 77080

== ENCOUNTER → 2023-03-19 | Outpatient (CLI) | payer MEDICARE, BC ==
--- NOTE | 2023-03-20 08:09 | MM ---
Reason for Exam: Screening (asymptomatic). Last mammogram was performed 1 year(s) and 1 month(s) ago. Patient History: Menarche at age 12. First Full-Term at age 20. Hysterectomy at age 45. Postmenopausal. Other cancer. Maternal aunt had breast cancer, age 65. Risk Values: Hannah 5 year model risk: 1.4%. NCI Lifetime model risk: 2.8%. Prior Study Comparison: 04/22/2019 Bilateral Screening Mammogram, [facility]. 08/18/2020 Bilateral Screening Mammogram, [facility]. 03/02/2022 Bilateral Screening Mammogram, [facility]. Tissue Density: The breast tissue is heterogeneously dense. This may lower the sensitivity of mammography. Findings: Analyzed By CAD. Pattern appears symmetrical and stable. Benign calcification is within the right breast. No suspicious groups of microcalcifications, spiculated or lobular masses, architectural distortion or other secondary signs of malignancy are mammographically apparent. Overall Assessment: Benign, BI-RAD 2 Management: Screening Mammogram of both breasts in 1 year. A negative mammogram report should not preclude additional follow up of suspicious palpable abnormalities. Patient should continue monthly self breast exam. A clinical breast exam by your physician is recommended on an annual basis and results should be correlated with mammographic findings. Electronically signed and approved by: Dmitriy Shay D.O. Radiologis
== END | disposition home or self-care (01) ==
LOC: RADMAMWWP 09:02
PROVIDERS: ATTEND Internal Medicine
DX: Z12.31 Encounter for screening mammogram for malignant neoplasm of breast (principal); Z78.0 Asymptomatic menopausal state; Z80.3 Family history of malignant neoplasm of breast
CPT/HCPCS: 77063; 77067

== ENCOUNTER 2023-05-31 15:17 | Emergency (ER) | payer MEDICARE, BC ==
--- NOTE | 2023-05-31 16:25 | ED ---
General Adult HPI - General Chief complaint: Fall Stated complaint: fell facial injuries Time Seen by Provider: 05/31/23 16:07 Source: patient, RN notes reviewed Mode of arrival: ambulatory - History of Present Illness Initial comments: 77-year-old female presents to the emergency department with chief complaint of fall. [place] her shoe got caught on the cement and she tripped falling on both of her knees and hitting her head on the ground. Patient has abrasions to her face, bilateral knees. She denies loss of consciousness, blood thinners. Past medical history includes hypertension, fibromyalgia. - Related Data Home Medications Medication Instructions Recorded Confirmed ALPRAZolam [Xanax] 0.25 mg PO BID 03/02/16 06/02/19 Acetaminophen Tab [Tylenol] 1,000 mg PO Q6HR PRN 03/02/16 06/02/19 Atorvastatin [Lipitor] 10 mg PO HS 03/02/16 06/02/19 Calcium Carb-Vit D 500Mg-5Mcg 1 tab PO QAM 03/02/16 06/02/19 [Oscal 500+D 5 Mcg (200 Iu)] Orphenadrine [Norflex] 100 mg PO Q12H 03/02/16 06/02/19 nadoloL [Corgard] 20 mg PO DAILY 03/02/16 06/02/19 raNITIdine HCL [Zantac] 150 mg PO BID 03/02/16 06/02/19 hydroCHLOROthiazide 12.5 mg PO DAILY PRN 03/06/16 06/02/19 Previous Rx's Medication Instructions Recorded Azithromycin [Zithromax Z-pack] 0 mg PO DIRECTED #6 tab 06/03/19 Fluticasone Nasal [place] [Flonase 2 spr EA NOSTRIL DAILY #1 bottle 06/03/19 Nasal [place]] Losartan [Cozaar] 100 mg PO DAILY #60 tab 06/03/19 Allergies Allergy/AdvReac Type Severity Reaction Status Date / Time hydrocodone bitartrate Allergy "heart Verified 05/31/23 15:25 [From Vicodin] races" latex Allergy Swelling Verified 05/31/23 15:25 prochlorperazine Allergy Pain Verified 05/31/23 15:25 [From Compazine] prochlorperazine edisylate Allergy Pain Verified 05/31/23 15:25 [From Compazine] prochlorperazine maleate Allergy Pain Verified 05/31/23 15:25 [From Compazine] adhesive tape AdvReac Rash/Hives Verified 05/31/23 15:25 Review of Systems ROS Statement: Those systems with pertinent positive or pertinent negative responses have been documented in the HPI. ROS Other: All systems not noted in ROS Statement are negative. Past Medical History Past Medical History: Fibromyalgia, GERD/Reflux, Hyperlipidemia, Hypertension History of Any Multi-Drug Resistant Organisms: None Reported Past Surgical History: Bladder Surgery, Hysterectomy Additional Past Surgical History / Comment(s): 1998 partial hysterectomy & bladder suspension, kidney stone removed, skin cancer removed from right forearm Past Anesthesia/Blood Transfusion Reactions: No Reported Reaction Past Psychological History: Anxiety Smoking Status: Former smoker Past Alcohol Use History: Rare Past Drug Use History: None Reported - Past Family History Mother Family Medical History: Cancer, Hyperlipidemia Additional Family Medical History / Comment(s): CA: lung Father Family Medical History: Congestive Heart Failure (CHF), Diabetes Mellitus Brother(s) Family Medical History: Coronary Artery Disease (CAD), Hypertension Sister(s) History Unknown: Yes Daughter(s) Family Medical History: Hypertension Son(s) Family Medical History: No Reported History General Exam Limitations: no limitations General appearance: alert, in no apparent distress Head exam: Present: other (abrasion to right sided face) Eye exam: Present: normal appearance, PERRL, EOMI. Absent: scleral icterus, conjunctival injection, periorbital swelling ENT exam: Present: normal exam, mucous membranes moist Neck exam: Present: normal inspection, full ROM. Absent: tenderness, meningismus, lymphadenopathy Respiratory exam: Present: normal lung sounds bilaterally. Absent: respiratory distress, wheezes, rales, rhonchi, stridor Cardiovascular Exam: Present: regular rate, normal rhythm, normal heart sounds. Absent: systolic murmur, diastolic murmur, rubs, gallop, clicks GI/Abdominal exam: Present: soft, normal bowel sounds. Absent: distended, tenderness, guarding, rebound, rigid Extremities exam: Present: normal inspection, full ROM, normal capillary refill, other (abrasions to bilateral knees, DP and PT pulses 2+, full ROM ). Absent: tenderness, pedal edema, joint swelling, calf tenderness Back exam: Present: normal inspection, full ROM. Absent: tenderness Neurological exam: Present: alert, oriented X3, CN II-XII intact Psychiatric exam: Present: normal affect, normal mood Skin exam: Present: warm, dry, normal color, abrasion (abrasion to bilateral knees, right sided face). Absent: rash Course Vital Signs 05/31/23 15:20 Temperature 97.5 F L Pulse Rate 65 Respiratory 18 Rate Blood Pressure 128/55 O2 Sat by Pulse 95 Oximetry Medical Decision Making - Medical Decision Making Was pt. sent in by a medical professional or institution (, CATHY, CLAIMS COLLECTOR, urgent care, hospital, or custodial...) When possible be specific @ -No Did you speak to anyone other than the patient for history (EMS, parent, family, police, friend...)? What history was obtained from this source @ -No Did you review nursing and triage notes (agree or disagree)? Why? @ -I reviewed and agree with nursing and triage notes Were old charts reviewed (outside hosp., previous admission, EMS record, old EKG, old radiological studies, urgent care reports/EKG's, custodial records)? Report findings @ -No old charts were reviewed Differential Diagnosis (chest pain, altered mental status, abdominal pain women, abdominal pain men, vaginal bleeding, weakness, fever, dyspnea, syncope, headache, dizziness, GI bleed, back pain, seizure, CVA, palpatations, mental health, musculoskeletal)? @ -fall, intracranial hemorrhage, fracture, abrasion, laceration, this list is not all inclusive EKG interpreted by me (3pts min.). @ -none X-rays interpreted by me (1pt min.). @ -XR bilateral knees show no evidence of acute fracture CT interpreted by me (1pt min.). @ -CT brain and Cspine show no evidence for acute intracranial hemorrhage, no evidence of acute fracture U/S interpreted by me (1pt. min.). @ -None done What testing was considered but not performed or refused? (CT, X-rays, U/S, labs)? Why? @ -None What meds were considered but not given or refused? Why? @ -None Did you discuss the management of the patient with other professionals (professionals i.e. CATHY Reyes, CLAIMS COLLECTOR, lab, RT, psych nurse, social media director, injection maintenance technician, teacher, chief compliance officer, telephonic nurse case manager)? Give summary @ -No Was smoking cessation discussed for >3mins.? @ -No Was critical care preformed (if so, how long)? @ -No Were there social determinants of health that impacted care today? How? (Homelessness, low income, unemployed, alcoholism, drug addiction, transportation, low edu. Level, literacy, decrease access to med. care, senior living, rehab)? @ -No Was there de-escalation of care discussed even if they declined (Discuss DNR or withdrawal of care, Hospice)? DNR status @ -No What co-morbidities impacted this encounter? (DM, HTN, Smoking, COPD, CAD, Cancer, CVA, ARF, Chemo, Hep., AIDS, mental health diagnosis, sleep apnea, morbid obesity)? @ -None Was patient admitted / discharged? Hospital course, mention meds given and route, prescriptions, significant lab abnormalities, going to OR and other pertinent info. @ -Discharged. Patient presented to the emergency department for chief complaint of fall that occurred earlier today. [place] and fell onto her bilateral knees and hit her head on the ground. Patient has abrasions to both knees and face. X-rays of bilateral knees showed no evidence for acute fracture. CT brain and C-spine showed no evidence for acute intracranial hemorrhage, no evidence of acute fracture. Patient was advised of these findings and return precautions discussed. Patient agreeable with plan. Patient to start in stable condition. Case discussed with my attending, Dr. Scott Undiagnosed new problem with uncertain prognosis? @ -No Drug Therapy requiring intensive monitoring for toxicity (Heparin, Nitro, Insulin, Cardizem)? @ -No Were any procedures done? @ -No Diagnosis/symptom? @ -fall Acute, or Chronic, or Acute on Chronic? @ -acute Uncomplicated (without systemic symptoms) or Complicated (systemic symptoms)? @ -uncomplicated Side effects of treatment? @ -No Exacerbation, Progression, or Severe Exacerbation? @ -No Poses a threat to life or bodily function? How? (Chest pain, USA, NC, pneumonia, PE, COPD, DKA, ARF, appy, cholecystitis, CVA, Diverticulitis, Homicidal, Suicidal, threat to staff... and all critical care pts) @ -No Disposition Clinical Impression: Fall Disposition: HOME SELF-CARE Condition: Stable Instructions (If sedation given, give patient instructions): Acute Wound Care (ED) Additional Instructions: Please return to the emergency department for new or worsening symptoms. Is patient prescribed a controlled substance at d/c from ED?: No Referrals: Yovana Davidson MD [Primary Care Provider] - 1-2 days Time of Disposition: 17:24
--- NOTE | 2023-05-31 16:56 | CT ---
EXAMINATION TYPE: CT brain cspine wo con CT DLP: 1255.4 mGycm, Automated exposure control for dose reduction was used. DATE OF EXAM: 05/31/2023 4:45 PM COMPARISON: None. CLINICAL INDICATION:Female, 77 years old with history of fall, hit head; fall TECHNIQUE: Brain: Multiple axial CT images of the brain were obtained without IV contrast. Cspine: Axial CT images from the skull base to the inferior aspect of T2 we obtained without intraven ous contrast. Coronal and sagittal reformatted images were also reviewed. FINDINGS: Brain: Extra-axial spaces: No abnormal extra-axial fluid collections. Ventricular system: Within normal limits Cerebral parenchyma: No acute intraparenchymal hemorrhage or mass effect. The watts-white junction is well differentiated. Cerebellum: Unremarkable. Mass effect: No evidence of midline shift. Intracranial vasculature: Atherosclerotic calcifications of the intracranial vessels. Soft tissues: Right periorbital edema Calvarium/osseous structures: No depressed skull fracture. Paranasal sinuses and mastoid air cells: Clear. Visualized orbits: Bilateral aphakia Cervical spine: Fracture: None. Osseous structures: Multilevel degenerative disc disease changes with endplate spurring and disc oste ophyte complex's. Vertebral alignment: Within normal limits. Spinal canal/Neural Foramina: No evidence of significant spinal canal narrowing. No evidence for sign ificant neural foraminal stenosis. Neck soft tissues: Prevertebral soft tissues are within normal limits. Other: The airway is patent. The lung apices are clear. IMPRESSION: 1. No acute intracranial process. 2. Right periorbital edema without evidence of fracture. 3. No evidence of cervical spine fracture. 4. Mild multilevel degenerative disc disease.
--- NOTE | 2023-05-31 17:02 | XR ---
PROCEDURE: XR knee complete bilateral - 3V DATE AND TIME: 05/31/2023 4:56 PM CLINICAL INDICATION: Pain; fall on knees TECHNIQUE: Department protocol COMPARISON: 06/23/2010 FINDINGS: Right knee: 3 views. There is no fracture or malalignment. The soft tissues are unremarkable. Left knee: 3 views. There is no fracture or malalignment. The soft tissues are unremarkable. IMPRESSION: NO ACUTE PROCESS.
[2023-05-31 18:06] VITALS: BP 142/71; PULSE 56; RESP 16; TEMP 98.4
== END 2023-05-31 18:07 | disposition home or self-care (01) ==
LOC: EC 15:17
DX: S80.212A Abrasion, left knee, initial encounter (principal); S80.211A Abrasion, right knee, initial encounter; E78.5 Hyperlipidemia, unspecified; I10 Essential (primary) hypertension; F41.9 Anxiety disorder, unspecified; Z87.891 Personal history of nicotine dependence; Z79.899 Other long term (current) drug therapy; Z88.6 Allergy status to analgesic agent; Z91.09 Other allergy status, other than to drugs and biological substances; Z91.040 Latex allergy status; Z88.8 Allergy status to other drugs, medicaments and biological substances; Z88.5 Allergy status to narcotic agent; W01.0XXA Fall on same level from slipping, tripping and stumbling without subsequent striking against object, initial encounter
CPT/HCPCS: 70450; 72125; 99284

== ENCOUNTER → 2024-03-05 | Outpatient (CLI) | payer MEDICARE, BC ==
--- NOTE | 2024-03-06 09:50 | MM ---
Reason for Exam: Screening (asymptomatic). Last screening mammogram was performed 12 month(s) ago. Patient History: Menarche at age 12. First Full-Term at age 20. Hysterectomy at age 45. Postmenopausal. Other cancer. Maternal aunt had breast cancer, age 65. Risk Values: Hannah 5 year model risk: 1.4%. NCI Lifetime model risk: 2.7%. Prior Study Comparison: 03/29/2017 Bilateral Screening Mammogram, [facility]. 04/11/2018 Bilateral Screening Mammogram, [facility]. 04/22/2019 Bilateral Screening Mammogram, [facility]. 08/18/2020 Bilateral Screening Mammogram, [facility]. 03/02/2022 Bilateral Screening Mammogram, [facility]. 03/19/2023 Bilateral MG 3D screening mammo w/cad, [facility]. Tissue Density: The breasts are heterogeneously dense, which may obscure small masses. Findings: Analyzed By CAD. There is no suspicious group of microcalcifications or new suspicious mass in either breast. Stable benign-appearing calcifications. Overall Assessment: Benign, BI-RAD 2 Management: Screening Mammogram of both breasts in 1 year. . Patient should continue monthly self-breast exams. A clinical breast exam by your physician is recommended on an annual basis. This exam should not preclude additional follow-up of suspicious palpable abnormalities. Note on Hannah scores and lifetime risk: 1. A Hannah score greater than 3% is considered moderate risk. If this is the case, consider specialist referral to assess eligibility for a risk reducing agent. 2. If overall lifetime risk for the development of breast cancer is 20% or higher, the patient may qualify for future screening with alternating mammogram and breast MRI. Electronically signed and approved by: Sami Donis M.D. Radiologis
== END | disposition home or self-care (01) ==
LOC: RADMAMWWP 09:01
PROVIDERS: ATTEND Internal Medicine
DX: Z12.31 Encounter for screening mammogram for malignant neoplasm of breast (principal); Z78.0 Asymptomatic menopausal state; Z80.3 Family history of malignant neoplasm of breast
CPT/HCPCS: 77063; 77067

== ENCOUNTER → 2025-03-18 | Outpatient (CLI) | payer MEDICARE, BC ==
--- NOTE | 2025-03-18 15:56 | XR ---
EXAMINATION TYPE: XR chest 2V DATE OF EXAM: 03/18/2025 12:18 PM COMPARISON: 06/02/2019 CLINICAL INDICATION: Female, 79 years old with history of R07.89 CHEST WALL TENDERNESS, , TECHNIQUE: Frontal and lateral views FINDINGS: Heart borderline in size. Mild hyperinflation with increased retrosternal clear space. No consolidati on or pleural effusion. IMPRESSION: Borderline heart size and COPD. No acute process seen. [facility], Workstation: [facility], 03/18/2025 3:53 PM
== END | disposition home or self-care (01) ==
LOC: RADXRMAIN 11:54
PROVIDERS: ATTEND Internal Medicine
DX: J44.9 Chronic obstructive pulmonary disease, unspecified (principal); R07.89 Other chest pain
CPT/HCPCS: 71046

== ENCOUNTER → 2025-04-21 | Outpatient (CLI) | payer MEDICARE, BC ==
--- NOTE | 2025-04-21 11:05 | MM ---
Reason for Exam: Screening (asymptomatic). Last mammogram was performed 1 year(s) and 1 month(s) ago. Patient History: Menarche at age 12. First Full-Term at age 20. Hysterectomy at age 45. Postmenopausal. Other cancer. Maternal aunt had breast cancer, age 65. Risk Values: Hannah 5 year model risk: 1.4%. NCI Lifetime model risk: 2.5%. Prior Study Comparison: 03/02/2022 Bilateral Screening Mammogram, [facility]. 03/19/2023 Bilateral MG 3D screening mammo w/cad, [facility]. 03/05/2024 Bilateral MG 3D screening mammo w/cad, [facility]. Tissue Density: The breasts are heterogeneously dense, which may obscure small masses. Findings: Analyzed By CAD. Areas of bilateral asymmetric density are unchanged. Grouped punctate calcifications on the right are also unchanged. There is no suspicious group of microcalcifications or new suspicious mass in either breast. Overall Assessment: Benign, BI-RAD 2 Management: Screening Mammogram of both breasts in 1 year. Patient should continue monthly self-breast exams. A clinical breast exam by your physician is recommended on an annual basis. This exam should not preclude additional follow-up of suspicious palpable abnormalities. Note on Hannah scores and lifetime risk: 1. A Hannah score greater than 3% is considered moderate risk. If this is the case, consider specialist referral to assess eligibility for a risk reducing agent. 2. If overall lifetime risk for the development of breast cancer is 20% or higher, the patient may qualify for future screening with alternating mammogram and breast MRI. [facility], , 04/21/2025 11:02 AM. Electronically signed and approved by: Catrachito Ro M.D. Radiologist
== END | disposition home or self-care (01) ==
LOC: RADMAMWWP 09:40
PROVIDERS: ATTEND Internal Medicine
DX: Z12.31 Encounter for screening mammogram for malignant neoplasm of breast (principal); R92.333 Mammographic heterogeneous density, bilateral breasts; Z78.0 Asymptomatic menopausal state; Z80.3 Family history of malignant neoplasm of breast
CPT/HCPCS: 77063; 77067